=== PATIENT | female | born 1960 | race Caucasian/White ===

== ENCOUNTER → 2016-09-07 | Outpatient (CLI) | payer MEDICAID | LOC: RAD 10:36 | PROVIDERS: ATTEND Internal Medicine Gastroenterology | DX: R10.13 Epigastric pain (principal); R11.0 Nausea | CPT/HCPCS: 76705 ==

== ENCOUNTER 2016-10-07 00:46 | Inpatient (IN) | payer MEDICAID ==
[2016-10-07] MEDS ORDERED: DICYCLOMINE HCL INJ 20 MG/2 ML AMPULE IM ONE (02:46)
[2016-10-07] MEDS ORDERED: NORMAL SALINE 1000 ML 1,000 ML IV ONE (02:47)
[2016-10-07] MEDS ORDERED: ONDANSETRON HCL INJ/PF 4 MG/2 ML SDV IV ONE (02:47)
--- NOTE | 2016-10-07 03:08 | ER Document Report ---
ED General - General TRAVEL OUTSIDE OF THE [place] IN LAST 30 DAYS: No <COURTNEY ALY - Last Filed: 10/07/16 03:06> <PAMELA ALVES - Last Filed: 10/07/16 09:30> - General Chief Complaint: Diarrhea Stated Complaint: ABDOMINAL PAIN Notes: Patient is 55-year-old female presents with complaint of abdominal pain is lower in her abdomen and raised her back. Also some diarrhea. She has a history of renal bowel disease. She's followed by Dr. House. She had a colonoscopy and upper GI endoscopy in April which were normal. She has been on Naprosyn which she just finished. She was on Naprosyn because of tendinitis in her left shoulder. She says that the diarrhea has turned mostly blood type stool. No fevers. No recent antibiotic use. No recent infections. No other complaints at this time. (COURTNEY ALY) - Related Data Allergies/Adverse Reactions: Gadolinium-Containing Contrast Medi Allergy (Verified 11/27/15 13:17) Iodinated Contrast Media - Oral and Allergy (Verified 11/27/15 13:17) iodine Allergy (Verified 11/27/15 13:00) Penicillins Allergy (Verified 11/27/15 13:00) prednisone Allergy (Verified 11/27/15 13:00) strawberry Allergy (Verified 11/27/15 13:17) Past Medical History - Social History Smoking Status: Never Smoker Frequency of alcohol use: None Drug Abuse: None Family History: Reviewed & Not Pertinent Patient has suicidal ideation: No Patient has homicidal ideation: No - Past Medical History Cardiac Medical History: Reports: Hx Hypertension Pulmonary Medical History: Reports: Hx Asthma Renal/ Medical History: Denies: Hx Peritoneal Dialysis Past Surgical History: Reports: Hx Hysterectomy, Hx Orthopedic Surgery - Back - Immunizations Hx Diphtheria, Pertussis, Tetanus Vaccination: Yes - 2001 <COURTNEY ALY - Last Filed: 10/07/16 03:06> Review of Systems <COURTNEY ALY - Last Filed: 10/07/16 03:06> <PAMELA ALVES - Last Filed: 10/07/16 09:30> - Review of Systems Notes: My Normal Review Basic REVIEW OF SYSTEMS: CONSTITUTIONAL : Denies fever, chills, or sweats. Denies recent illness. EENT: Denies eye, ear, throat, or mouth pain or symptoms. Denies nasal or sinus congestion. RESPIRATORY: Denies cough, cold, or chest congestion. Denies shortness of breath, difficulty breathing, or wheezing. GASTROINTESTINAL: Lower abdominal pain. Recurrent diarrhea and bloody stools. GENITOURINARY: Denies difficulty urinating, painful urination, burning, frequency, or blood in urine. FEMALE GENITOURINARY: Denies vaginal bleeding, abnormal or irregular periods. MUSCULOSKELETAL: Some pain radiating to the back from the lower abdomen. SKIN: Denies rash or skin lesions. HEMATOLOGIC : Denies easy bruising or bleeding. NEUROLOGICAL: Denies altered mental status or loss of consciousness. Denies headache. Denies weakness or paralysis or loss of use of either side. Denies problems with gait or speech. Denies sensory or motor loss. ALL OTHER SYSTEMS REVIEWED AND NEGATIVE. (COURTNEY ALY) Physical Exam <COURTNEY ALY - Last Filed: 10/07/16 03:06> <PAMELA ALVES - Last Filed: 10/07/16 09:30> - Vital signs Vitals: Temp Pulse Resp BP Pulse Ox 98.3 F 78 18 137/59 H 98 10/07/16 01:57 10/07/16 01:57 10/07/16 01:57 10/07/16 01:57 10/07/16 01:57 - Notes Notes: General Appearance: Well nourished, alert, cooperative, no acute distress, moderate obvious discomfort. Vitals: reviewed, See vital signs table. Head: no swelling or tenderness to the head Eyes: PERRL, EOMI, Conjuctiva clear Mouth: No decreasd moisture Neck: Supple, no neck tenderness, No thyromegaly Lungs: No wheezing, No rales, No rhonci, No accessory muscle use, good air exchange bilaterally. Heart: Normal rate, Regular rythm, No murmur, no rub Abdomen: Normal BS, soft, No rigidity, mild to moderate left lower quadrant abdominal tenderness to palpation, No guarding, no rebound, no abdominal masses , no organomegaly Extremities: strength 5/5 in all extremities, good pulses in all extremities, no swelling or tenderness in the extremities, no edema. Skin: warm, dry, appropriate color, no rash Neuro: speech clear, oriented x 3, normal affect, responds appropriately to questions. (COURTNEY ALY) Course <COUTRNEY ALY - Last Filed: 10/07/16 03:06> - Laboratory Result Diagrams: 10/07/16 03:40 10/07/16 03:40 <PAMELA ALVES - Last Filed: 10/07/16 09:30> - Re-evaluation Re-evalutation: 10/07/16 09:[address] Mckinnon at 745, phone not connecting Pt admitted to hospitalist Called again no answer (PAMELA ALVES) - Vital Signs Vital signs: Temp Pulse Resp BP Pulse Ox 98.2 F 78 15 141/74 H 96 10/07/16 07:34 10/07/16 01:57 10/07/16 09:01 10/07/16 09:01 10/07/16 09:01 - Laboratory Laboratory results interpreted by me: 10/07/16 10/07/16 03:40 05:51 WBC 17.6 H Seg Neutrophils % 82.9 H Lymphocytes % 12.4 L Absolute Neutrophils 14.6 H Urine Blood SMALL H Discharge <COURTNEY ALY - Last Filed: 10/07/16 03:06> - Discharge Admitting Provider: Hospitalist Unit Admitted: Medical Floor <PAMELA ALVES - Last Filed: 10/07/16 09:30> - Discharge Clinical Impression: Colitis due to Clostridium difficile, Rectal hemorrhage Condition: Stable Disposition: ADMITTED OBSERVATION
[2016-10-07 03:57] LABS: ABSOLUTE BASOPHILS # (AUTO) 0.1 10^3/uL (0.0-0.2); ABSOLUTE LYMPHOCYTES (AUTO) 2.2 10^3/uL (0.5-4.7); ABSOLUTE MONOCYTES (AUTO) 0.8 10^3/uL (0.1-1.4); ABSOLUTE NEUT (AUTO) 14.6 10^3/uL (1.7-8.2); BASOPHILS % (AUTO) 0.3 % (0-2); EOSINOPHILS % (AUTO) 0.1 % (0-6); HEMATOCRIT 41.3 % (36.0-47.0); HEMOGLOBIN 13.9 g/dL (12.0-15.5); HGB HCT DIFFERENCE 0.4; LYMPHOCYTES % (AUTO) 12.4 % (13-45); MEAN CORPUSCULAR HEMOGLOBIN 31.6 pg (27.0-33.4); MEAN CORPUSCULAR HGB CONC 33.7 g/dL (32.0-36.0); MEAN CORPUSCULAR VOLUME 94 fl (80-97); MONOCYTES % (AUTO) 4.3 % (3-13); RED CELL DISTRIBUTION WIDTH 12.9 % (11.5-14.0); SEGMENTED NEUTROPHILS % (AUTO) 82.9 % (42-78); WHITE BLOOD COUNT 17.6 10^3/uL (4.0-10.5)
[2016-10-07 04:05] LABS: ALANINE AMINOTRANSFERASE 26 U/L (9-52); ALKALINE PHOSPHATASE 92 U/L (38-126); ANION GAP 15 (5-19); ASPARTATE AMINO TRANSFERASE 23 U/L (14-36); BILIRUBIN,DIRECT 0.4 mg/dL (0.0-0.4); BILIRUBIN,TOTAL 0.7 mg/dL (0.2-1.3); BLOOD UREA NITROGEN 18 mg/dL (7-20); CALCIUM 10.2 mg/dL (8.4-10.2); CARBON DIOXIDE 23 mmol/L (22-30); CHLORIDE 104 mmol/L (98-107); CREATININE RESULT 0.65 mg/dL (0.52-1.25); GLUCOSE 103 mg/dL (75-110); LIPASE 72.4 U/L (23-300); POTASSIUM 4.6 mmol/L (3.6-5.0); SODIUM 142.3 mmol/L (137-145); TOTAL PROTEIN 8.1 g/dL (6.3-8.2)
[2016-10-07] MEDS ORDERED: METRONIDAZOLE 500 MG/NS RTU 100 ML IV ONE (05:04)
[2016-10-07 07:29] LABS: APPEARANCE,URINE CLEAR; BILIRUBIN,URINE NEGATIVE (NEGATIVE); GLUCOSE, URINE NEGATIVE (NEGATIVE); KETONES,URINE NEGATIVE (NEGATIVE); LEUKOCYTE ESTERASE,URINE NEGATIVE (NEGATIVE); NITRITE,URINE NEGATIVE (NEGATIVE); PROTEIN,URINE NEGATIVE (NEGATIVE); URINE SPECIFIC GRAVITY 1.006; UROBILINOGEN,URINE NEGATIVE mg/dL (<2.0)
[2016-10-07] MEDS ORDERED: ONDANSETRON HCL INJ/PF 4 MG/2 ML SDV IV PRN (10:36)
[2016-10-07] MEDS ORDERED: ACETAMINOPHEN 325 MG TABLET PO PRN (10:36)
[2016-10-07] MEDS ORDERED: IPRATROPIUM/ALBUTEROL 0.5-2.5 MG/3 ML AMPUL NEB PRN (10:36)
[2016-10-07] MEDS ORDERED: MORPHINE SULFATE 10 MG/ML INJ IV PRN (10:43)
[2016-10-07] MEDS ORDERED: LANSOPRAZOLE 30 MG TAB.RAP.DR PO ONE (11:30)
[2016-10-07 12:03] LABS: PHOSPHORUS 4.6 mg/dL (2.5-4.5)
[2016-10-07] MEDS: OXYCODONE-ACETAMINOPHEN 5-325 MG TABLET PO PRN ×2 (14:33→21:13)
[2016-10-07] MEDS: METRONIDAZOLE 500 MG TABLET PO SCH ×2 (14:34→21:13)
[2016-10-07] MEDS ORDERED: (PENDING PHARMACY ID) (Lisinopril [Zestril] 20 MG) PO SCH (14:45)
[2016-10-07] MEDS ORDERED: LISINOPRIL 10 MG TABLET PO ONE (16:00)
[2016-10-07] MEDS: GLYCOPYRROLATE 1 MG TABLET PO SCH (16:15)
[2016-10-07] MEDS: LACTOBACILLUS ACIDOPHILUS 250 MG TAB PO SCH (17:04)
--- NOTE | 2016-10-07 17:38 | PDOC H&P ---
History of Present Illness Admission Date/PCP: 10/07/16 10:36 RYDER STEARNS MD Patient complains of: Abdominal pain and bloody diarrhea History of Present Illness: JHONNY SHAVER is a 55 year old female presents from home with sudden onset of crampy lower abdominal pain "like my belly exploded" with related urgency and tenesmus and "running" stools that quickly changed to bright red bloody stools 4 prior to her presentation. She is having a bowel movement about every 40 minutes. She describes lower abdominal pain as cramping, coming in waves, relieved with bowel movement, exacerbated by palpation in certain position, nonradiating in nature with associated nausea but no vomiting. She has no recent antibiotic exposure, states she was last placed on antibiotics for pharyngitis in July of this year with Z-Pablo 2 courses. She has not been hospitalized or visited people in the hospital. However, her oldest son recently adopted a puppy that had diarrhea for 2 weeks ultimately ended up at the [facility] requiring surgery for partial colectomy. It is not clear if the puppy was colonized with C. difficile or not but this is the only potential exposure she can think of. Evaluation in the emergency department doesn't fact confirm C. difficile colitis with best to admit for further evaluation and treatment. Past Medical History Cardiac Medical History: Reports: Hypertension Pulmonary Medical History: Reports: Asthma GI Medical History: Reports: Other - Diarrhea dominant irritable bowel syndrome Psychiatric Medical History: Reports: Depression Past Surgical History Past Surgical History: Reports: Hysterectomy, Orthopedic Surgery - Back Social History Information Source: Patient Smoking Status: Current Every Day Smoker Cigarettes Packs Per Day: 0.5 Number of Years Smokin Last Time Smoked: 10/06/2016 Frequency of Alcohol Use: Rare Hx Recreational Drug Use: No Hx Prescription Drug Abuse: No - Advance Directive Resuscitation Status: Full Code Family History Family History: Reviewed & Not Pertinent Parental Family History Reviewed: Yes Children Family History Reviewed: Yes Sibling(s) Family History Reviewed.: Yes Medication/Allergy Home Medications: Albuterol Sulfate [Proair HFA] 2 puff IH QIDP PRN 10/07/16 Black Cohosh 1 cap PO DAILY 10/07/16 Cranberry Conc/C/Bacill Coag [Cranberry Tablet] 4,200 mg PO DAILY 10/07/16 Glycopyrrolate [Robinul Forte] 2 mg PO BID 10/07/16 Lactobacillus Combination No.4 [Probiotic] 1 cap PO DAILY 10/07/16 Lisinopril [Zestril] 20 mg PO DAILY 10/07/16 Metaxalone [Skelaxin 800 mg Tablet] 800 mg PO TIDP PRN 10/07/16 Oxycodone HCl/Acetaminophen [Percocet 5-325 mg Tablet] 1 tab PO QIDP PRN Allergies/Adverse Reactions: tramadol Allergy (Intermediate, Verified 10/07/16 11:16) severe N&V and diarrhea Gadolinium-Containing Contrast Medi Allergy (Verified 11/27/15 13:17) Iodinated Contrast Media - Oral and Allergy (Verified 11/27/15 13:17) iodine Allergy (Verified 11/27/15 13:00) Penicillins Allergy (Verified 11/27/15 13:00) prednisone Allergy (Verified 11/27/15 13:00) strawberry Allergy (Verified 11/27/15 13:17) Review of Systems Constitutional: PRESENT: chills, fever(s). ABSENT: headache(s), weight gain, weight loss Eyes: ABSENT: visual disturbances Ears: ABSENT: hearing changes Cardiovascular: ABSENT: chest pain, dyspnea on exertion, edema, orthropnea, palpitations Respiratory: ABSENT: cough, hemoptysis Gastrointestinal: PRESENT: as per HPI, abdominal pain, diarrhea, hematochezia. ABSENT: constipation, hematemesis, nausea, vomiting Genitourinary: ABSENT: dysuria, hematuria Musculoskeletal: ABSENT: joint swelling Integumentary: ABSENT: rash, wounds Neurological: ABSENT: abnormal gait, abnormal speech, confusion, dizziness, focal weakness, syncope Psychiatric: ABSENT: anxiety, depression Endocrine: ABSENT: cold intolerance, heat intolerance, polydipsia, polyuria Hematologic/Lymphatic: ABSENT: easy bleeding, easy bruising Physical Exam Vital Signs: Temp Pulse Resp BP Pulse Ox 98.4 F 75 20 129/53 H 98 10/07/16 13:39 10/07/16 13:39 10/07/16 13:39 10/07/16 13:39 10/07/16 13:39 PHYSICAL EXAM GENERAL: NAD; well developed, well nourished; no obese; alert and oriented to person, place, time, situation HEENT: normocephalic, atraumatic; EOMI, PERRLA, no conjunctival injection, no scleral icterus; oral mucosa moist, neck supple, no LAD, normal ROM RESPIRATORY: no accessory muscle use, no increased WOB, good air entry bilaterally; no wheezes, rales, rhonchi; no inspiratory crackles CARDIO: no JVD; RRR; no systolic murmur; no tachycardia VASCULAR: no carotid bruit; no abdominal bruit; no pallor; 2+ radial, DP pulse ; normal capillary refill GI: soft; nondistended; hyperactive bowel sounds; no hepato spleno megaly; no rebound, rigidity, guarding; left lower quadrant tenderness to palpation NEURO: normal patella reflexes; normal sensation; normal motor function; no gait abnls; no dysarthria; no nystagmus; tongue protrudes midline MSK: 5/5 strength; normal ROM hips; ambulatory without assistance; no tenderness EXTREMITIES: no calf tender; no palpable cords in calf; no clubbing, cyanosis , pedal edema PSYCH: normal affect, normal mood SKIN: warm; moist; no petechiae; no telengectasias; no jaundice; no rash Results Laboratory Results: Labs reviewed, CBC shows a leukocytosis but no anemia, serum chemistries and LFTs are all normal, C-reactive protein elevated at 20, lipase is normal Impressions: Abdomen/Pelvis CT 10/07/16 04:06 IMPRESSION: Tiny nonobstructing left renal calculus. No other renal ureteric calculi are identified. Other findings as noted above Status: Imported from PACS Assessment & Plan - Diagnosis (1) C. difficile colitis Is this a current diagnosis for this admission?: YesPlan: Start metronidazole and admitted for overnight monitoring especially given the rectal bleeding. Monitor leukocytosis. (2) Rectal bleeding Is this a current diagnosis for this admission?: YesPlan: Likely secondary to above, monitor H&H, check coags. (3) Chronic bronchitis Qualifiers: Chronic bronchitis type: simple Qualified Code(s): J41.0 - Simple chronic bronchitis Is this a current diagnosis for this admission?: YesPlan: Stable at this time. Continue home regimen. Start nebs. (4) Hypertension Qualifiers: Hypertension type: essential hypertension Qualified Code(s): I10 - Essential (primary) hypertension Is this a current diagnosis for this admission?: YesPlan: Continue home regimen. Seems stable at this time. Monitor for hypotension due to the underlying infection. - Time Time Spent: Greater than 70 Minutes Medications reviewed and adjusted accordingly: Yes - Inpatient Certification Based on my medical assessment, after consideration of the patient's comorbidities, presenting symptoms, or acuity I expect that the services needed warrant INPATIENT care.: Yes I certify that my determination is in accordance with my understanding of Medicare's requirements for reasonable and necessary INPATIENT services [42 CFR 412.3e].: Yes Medical Necessity: Significant Comorbidiites Make Outpatient Treatment Too Risky , Need For IV Fluids, Risk of Complication if Not Cared For in Hospital
[2016-10-07] MEDS ORDERED: GLYCOPYRROLATE 2 MG PO SCH (18:00)
[2016-10-07 18:01] LABS: PROTHROMBIN TIME 13.6 SEC (11.4-15.4)
[2016-10-07 18:02] LABS: PARTIAL THROMBOPLASTIN TIME 27.6 SEC (23.5-35.8)
[2016-10-07] MEDS: METAXALONE 800 MG TABLET PO PRN (21:14)
[2016-10-07] MEDS: NORMAL SALINE 1000 ML 1,000 ML IV PRN (22:33)
[2016-10-08] MEDS: METRONIDAZOLE 500 MG TABLET PO SCH ×3 (05:58→21:34)
[2016-10-08] MEDS: LANSOPRAZOLE 30 MG TAB.RAP.DR PO SCH (05:59)
[2016-10-08] MEDS: OXYCODONE-ACETAMINOPHEN 5-325 MG TABLET PO PRN ×3 (05:59→21:35)
[2016-10-08] MEDS: NORMAL SALINE 1000 ML 1,000 ML IV PRN ×2 (07:29→09:02)
[2016-10-08] MEDS: GLYCOPYRROLATE 1 MG TABLET PO SCH ×2 (07:29→15:07)
[2016-10-08] MEDS ORDERED: NORMAL SALINE 1000 ML 1,000 ML IV PRN (07:40)
[2016-10-08] MEDS ORDERED: NORMAL SALINE 1000 ML 1,000 ML IV ONE ×2 (07:40→10:00)
[2016-10-08 08:08] LABS: HEMOGLOBIN 12.1 g/dL (12.0-15.5); HGB HCT DIFFERENCE 0.3; MEAN CORPUSCULAR HGB CONC 33.6 g/dL (32.0-36.0); MEAN CORPUSCULAR VOLUME 96 fl (80-97); RED BLOOD COUNT 3.77 10^6/uL (3.72-5.28); RED CELL DISTRIBUTION WIDTH 13.1 % (11.5-14.0); WHITE BLOOD COUNT 14.9 10^3/uL (4.0-10.5)
[2016-10-08 08:44] LABS: ANION GAP 11 (5-19); BLOOD UREA NITROGEN 9 mg/dL (7-20); C-REACTIVE PROTEIN 49.1 mg/L (<10.0); CALCIUM 8.4 mg/dL (8.4-10.2); CARBON DIOXIDE 21 mmol/L (22-30); CHLORIDE 112 mmol/L (98-107); CREATININE RESULT 0.62 mg/dL (0.52-1.25); GLUCOSE 98 mg/dL (75-110); POTASSIUM 4.1 mmol/L (3.6-5.0); SODIUM 144.1 mmol/L (137-145)
[2016-10-08] MEDS: LACTOBACILLUS ACIDOPHILUS 250 MG TAB PO SCH ×2 (09:02→17:02)
[2016-10-08] MEDS: LISINOPRIL 10 MG TABLET PO SCH (09:06)
--- NOTE | 2016-10-08 13:22 | PDOC PROGRESS REPORT ---
Subjective Progress Note for:: 10/08/16 Subjective:: Reason for visit: Follow-up C differential colitis, GI bleed Hospital course: JHONNY SHAVER is a 55 year old female presents from home with sudden onset of crampy lower abdominal pain "like my belly exploded" with related urgency and tenesmus and "running" stools that quickly changed to bright red bloody stools 4 prior to her presentation. She is having a bowel movement about every 40 minutes. She describes lower abdominal pain as cramping, coming in waves, relieved with bowel movement, exacerbated by palpation in certain position, nonradiating in nature with associated nausea but no vomiting. She has no recent antibiotic exposure, states she was last placed on antibiotics for pharyngitis in July of this year with Z-Pablo 2 courses. She has not been hospitalized or visited people in the hospital. However, her oldest son recently adopted a puppy that had diarrhea for 2 weeks ultimately ended up at the [facility] requiring surgery for partial colectomy. It is not clear if the puppy was colonized with C. difficile or not but this is the only potential exposure she can think of. Evaluation in the emergency department does in fact confirm C. difficile colitis and we were asked to admit for further evaluation and treatment. Due to her nausea, She was admitted for IV fluids and see if she would tolerate oral antibiotics. So far her nausea has improved but she continues to report bright red blood per rectum at least once during the night. This morning she is complaining of facial paresthesias involving the left side of her tongue and face similar to "when I had my TIA and mini stroke before". She complains of global, sharp, stabbing, throbbing headache that waxes and wanes, worse with certain positions, better with certain positions and no other associated symptoms. She denies focal weakness, dysarthria, odynophagia, expressive or receptive aphasia symptoms, dysphagia. ROS: per HPI plus a total of 10 systems reviewed, pertinent positives and negatives noted above, remaining systems negative. Physical Exam Vital Signs: Temp Pulse Resp BP Pulse Ox 98.2 F 81 16 117/56 L 97 10/08/16 11:07 10/08/16 12:39 10/08/16 12:39 10/08/16 11:07 10/08/16 12:39 Intake & Output 10/07/16 10/08/16 10/09/16 06:59 06:59 06:59 Intake Total 1999 999 Balance 1999 999 PHYSICAL EXAM GENERAL: NAD; well developed, well nourished; no obese; alert and oriented to person, place, time, situation HEENT: normocephalic, atraumatic; EOMI, PERRLA, no conjunctival injection, no scleral icterus; oral mucosa moist, neck supple, no LAD, normal ROM RESPIRATORY: no accessory muscle use, no increased WOB, good air entry bilaterally; no wheezes, rales, rhonchi; no inspiratory crackles CARDIO: no JVD; RRR; no systolic murmur; no tachycardia VASCULAR: no carotid bruit; no abdominal bruit; no pallor; 2+ radial, DP pulse ; normal capillary refill GI: soft; nondistended; normal bowel sounds; no hepato spleno megaly; no rebound, rigidity, guarding; left lower quadrant tenderness to palpation, improved NEURO: normal patella reflexes; normal sensation; normal motor function; no gait abnl's; no dysarthria; no nystagmus; tongue protrudes midline; no focal findings on confrontational exam MSK: 5/5 strength is symmetric; normal ROM hips; ambulatory without assistance ; no tenderness EXTREMITIES: no calf tender; no palpable cords in calf; no clubbing, cyanosis , pedal edema PSYCH: normal affect, normal mood SKIN: warm; moist; no petechiae; no telengectasias; no jaundice; no rash Results Laboratory Results: 10/08/16 07:29 10/08/16 07:29 10/08/16 10/08/16 10/08/16 07:29 07:29 07:29 WBC 14.9 H RBC 3.77 Hgb 12.1 Hct 36.0 MCV 96 MCH 32.0 MCHC 33.6 RDW 13.1 Plt Count 293 Sodium 144.1 Potassium 4.1 Chloride 112 H Carbon Dioxide 21 L Anion Gap 11 BUN 9 Creatinine 0.62 Est GFR ( Amer) > 60 Est GFR (Non-Af Amer) > 60 Glucose 98 Calcium 8.4 Magnesium 2.0 C-Reactive Protein 49.1 H Vitamin B12 431.0 Impressions: Abdomen/Pelvis CT 10/07/16 04:06 IMPRESSION: Tiny nonobstructing left renal calculus. No other renal ureteric calculi are identified. Other findings as noted above Head MRI 10/08/16 07:41 IMPRESSION: Allowing for motion artifact, normal noncontrast MR brain. No acute intracranial abnormality detected. No recent CVA. Assessment & Plan - Diagnosis (1) C. difficile colitis Is this a current diagnosis for this admission?: YesPlan: Continue metronidazole and IV fluids. Monitor leukocytosis and hemodynamics. (2) Rectal bleeding Is this a current diagnosis for this admission?: YesPlan: Persistent. Likely secondary to above, monitor H&H, coags normal. (3) Chronic bronchitis Qualifiers: Chronic bronchitis type: simple Qualified Code(s): J41.0 - Simple chronic bronchitis Is this a current diagnosis for this admission?: Yes (4) Hypertension Qualifiers: Hypertension type: essential hypertension Qualified Code(s): I10 - Essential (primary) hypertension Is this a current diagnosis for this admission?: Yes (5) Paresthesias Is this a current diagnosis for this admission?: YesPlan: The patient suffered transient hypotension during the night and I suspect this is the source of her paresthesias. Stat MRI shows no acute intracranial abnormality or infarct. Check stat B12. Increase IV fluids to keep a higher mean arterial pressure. Monitor for response. - Time Time Spent with patient: 35 or more minutes Medications reviewed and adjusted accordingly: Yes
[2016-10-08] MEDS ORDERED: RINGERS SOLUTION,LACTATED 1,000 ML IV PRN (16:26)
[2016-10-08] MEDS: METAXALONE 800 MG TABLET PO PRN (22:34)
[2016-10-08] MEDS ORDERED: 1/2 NORMAL SALINE 1,000 ML IV PRN (22:46)
[2016-10-09] MEDS: LANSOPRAZOLE 30 MG TAB.RAP.DR PO SCH (05:20)
[2016-10-09] MEDS: METRONIDAZOLE 500 MG TABLET PO SCH ×3 (05:20→21:07)
--- NOTE | 2016-10-09 07:28 | Physician Advisory Note ---
Physician Advisor ProgressNote .: [facility] have reviewed [facility] medical record for this patient. Physician Advisor Statement: Nice documentation of concerns 10/08 due to transient hypotension w/ paresthesias. Possible documentation opportunities if attending agrees: 1. "acute metabolic acidosis due to diarrhea" As always, if concerned about any unstable VS or abnormal labs, please comment on them & note what doing about them, & please document each day the potential clinical problems you are concerned could occur if pt not kept in hospital for tx at this time. Discussion: 55yo female w/ chronic co-morbidities including HTN, asthma, tobacco abuse, IBS- D - presented 4/8 AM to ED w/abd pain, bloody diarrhea (+) T98.3, HR78, RR18, BP 137/59, WBC 17.6, Hgb 13.9, bicarb 23, Phos 4.6, CRP 20, hem+, C.diff+ Attending ordered NS wide open then 1/2NS @75ml/hr, po Flagyl, q4h VS, f/u labs Status: Pt appropriate initially for Outpt Obs. After 1 night of care, pt having new sx of paresthesias felt due to episode hypotension overnight, likely related to continued intravascular volume depletion from the diarrhea & rectal bleeding, requiring add'tional boluses of IVF, further monitoring of BP & sx. She had continued leukocytosis @14.9, her bicarb was worse @21, indicating worse acute metabolic acidosis from the diarrhea, her CRP was worse - from 20 to 49. Her BP continued to drop to 90s systolic during the day 10/08: 99/51, 87/50, 99/46, 92/53. Attending ordered 2L of NS boluses IV, & f/u labs. Continued tx & monitoring in inpatient hospital setting medically reasonable & necessary to protect pt's health, safety, & medical condition. Appropriate to change to Inpt status as of 10/08 PM. Thanks for your help with documentation accuracy/specificity improvement! Denise Garcia MD [facility] Physician Advisor, Fellow of Hospital Medicine
[2016-10-09] MEDS: GLYCOPYRROLATE 1 MG TABLET PO SCH ×2 (07:38→15:47)
[2016-10-09] MEDS: OXYCODONE-ACETAMINOPHEN 5-325 MG TABLET PO PRN ×2 (07:38→23:29)
[2016-10-09] MEDS: LACTOBACILLUS ACIDOPHILUS 250 MG TAB PO SCH ×2 (09:47→18:21)
[2016-10-09 11:10] LABS: ANION GAP 10 (5-19); BLOOD UREA NITROGEN 10 mg/dL (7-20); C-REACTIVE PROTEIN 41.4 mg/L (<10.0); CALCIUM 8.6 mg/dL (8.4-10.2); CARBON DIOXIDE 25 mmol/L (22-30); CHLORIDE 108 mmol/L (98-107); CREATININE RESULT 0.61 mg/dL (0.52-1.25); GLUCOSE 155 mg/dL (75-110); MAGNESIUM 1.9 mg/dL (1.6-2.3); SODIUM 143.1 mmol/L (137-145)
[2016-10-09] MEDS: LISINOPRIL 10 MG TABLET PO SCH (11:54)
--- NOTE | 2016-10-09 13:45 | PDOC PROGRESS REPORT ---
Subjective Progress Note for:: 10/09/16 Subjective:: Reason for visit: Follow-up C differential colitis, GI bleed Hospital course: JHONNY SHAVER is a 55 year old female presents from home with sudden onset of crampy lower abdominal pain "like my belly exploded" with related urgency and tenesmus and "running" stools that quickly changed to bright red bloody stools 4 prior to her presentation. She is having a bowel movement about every 40 minutes. She describes lower abdominal pain as cramping, coming in waves, relieved with bowel movement, exacerbated by palpation in certain position, nonradiating in nature with associated nausea but no vomiting. She has no recent antibiotic exposure, states she was last placed on antibiotics for pharyngitis in July of this year with Z-Pablo 2 courses. She has not been hospitalized or visited people in the hospital. However, her oldest son recently adopted a puppy that had diarrhea for 2 weeks ultimately ended up at the [facility] requiring surgery for partial colectomy. It is not clear if the puppy was colonized with C. difficile or not but this is the only potential exposure she can think of. Evaluation in the emergency department does in fact confirm C. difficile colitis and we were asked to admit for further evaluation and treatment. Due to her nausea, She was admitted for IV fluids and see if she would tolerate oral antibiotics. So far her nausea has improved but she continues to report bright red blood per rectum at least once during the night. This morning she is complaining of facial paresthesias involving the left side of her tongue and face similar to "when I had my TIA and mini stroke before". She complains of global, sharp, stabbing, throbbing headache that waxes and wanes, worse with certain positions, better with certain positions and no other associated symptoms. She denies focal weakness, dysarthria, odynophagia, expressive or receptive aphasia symptoms, dysphagia. stat MRI was negative for acute disease. Her BP responded to IVFs and so did her symptoms, it seems she is very sensitive to changes in SBPs. ROS: Today she continues to complain of left lower quadrant abdominal pain, slightly worse than before described as a sharp, stabbing pain alleviated with bowel movement and worsened with bowel distention and certain positions with associated nausea but no emesis when the pain is at its worst. Per HPI plus a total of 10 systems reviewed, pertinent positives and negatives noted above, remaining systems negative. Physical Exam Vital Signs: Temp Pulse Resp BP Pulse Ox 98.2 F 70 16 123/59 L 99 10/09/16 11:45 10/09/16 11:45 10/09/16 11:45 10/09/16 11:45 10/09/16 11:45 Intake & Output 10/08/16 10/09/16 10/10/16 06:59 06:59 06:59 Intake Total 4140 Balance 4140 PHYSICAL EXAM GENERAL: NAD; well developed, well nourished; no obese; alert and oriented to person, place, time, situation HEENT: normocephalic, atraumatic; no conjunctival injection, no scleral icterus ; oral mucosa moist, RESPIRATORY: no accessory muscle use, no increased WOB, good air entry bilaterally; no wheezes, rales, rhonchi; no inspiratory crackles CARDIO: no JVD; RRR; no systolic murmur; no tachycardia VASCULAR: no carotid bruit; no abdominal bruit; no pallor; 2+ radial, DP pulse ; normal capillary refill GI: soft; nondistended; normal bowel sounds; no rebound, rigidity, guarding; left lower quadrant tenderness to palpation with voluntary guarding NEURO: normal patella reflexes; normal sensation; normal motor function; no gait abnl's; no dysarthria; no nystagmus; tongue protrudes midline; no focal findings on confrontational exam MSK: 5/5 strength is symmetric; normal ROM hips; ambulatory without assistance ; no tenderness EXTREMITIES: no calf tender; no palpable cords in calf; no clubbing, cyanosis , pedal edema PSYCH: normal affect, normal mood SKIN: warm; moist; no petechiae; no telengectasias; no jaundice; no rash Results Laboratory Results: 10/09/16 10:05 10/09/16 10:05 Sodium 143.1 Potassium 4.0 Chloride 108 H Carbon Dioxide 25 Anion Gap 10 BUN 10 Creatinine 0.61 Est GFR ( Amer) > 60 Est GFR (Non-Af Amer) > 60 Glucose 155 H Calcium 8.6 Magnesium 1.9 C-Reactive Protein 41.4 H Impressions: Head MRI 10/08/16 07:41 IMPRESSION: Allowing for motion artifact, normal noncontrast MR brain. No acute intracranial abnormality detected. No recent CVA. Assessment & Plan - Diagnosis (1) C. difficile colitis Is this a current diagnosis for this admission?: YesPlan: worsening LLQ pain from the colitis. Continue metronidazole, supportive care and IV fluids. (2) Rectal bleeding Is this a current diagnosis for this admission?: YesPlan: Slightly worse with dropping H/H, could be part dilutional as well. bleeding persists but is "easing off" according to patient. Likely secondary to above, monitor H&H, coags normal. (3) Paresthesias Is this a current diagnosis for this admission?: YesPlan: The patient suffered transient hypotension during the night and I suspect this is the source of her paresthesias. Stat MRI shows no acute intracranial abnormality or infarct. B12 normal. continue IV fluids to keep a higher mean arterial pressure. Monitor for recurrence. (4) Chronic bronchitis Qualifiers: Chronic bronchitis type: simple Qualified Code(s): J41.0 - Simple chronic bronchitis Is this a current diagnosis for this admission?: Yes (5) Hypertension Qualifiers: Hypertension type: essential hypertension Qualified Code(s): I10 - Essential (primary) hypertension Is this a current diagnosis for this admission?: Yes - Time Time Spent with patient: 25-34 minutes Medications reviewed and adjusted accordingly: Yes Anticipated discharge: Home Within: within 24 hours - Plan Summary Plan Summary: Hopefully home tomorrow
[2016-10-09] MEDS: METAXALONE 800 MG TABLET PO PRN (23:53)
[2016-10-10] MEDS: METRONIDAZOLE 500 MG TABLET PO SCH (05:19)
[2016-10-10] MEDS: LANSOPRAZOLE 30 MG TAB.RAP.DR PO SCH (05:19)
[2016-10-10 06:50] LABS: ABSOLUTE BASOPHILS # (AUTO) 0.1 10^3/uL (0.0-0.2); ABSOLUTE EOSINOPHILS # (AUTO) 0.1 10^3/uL (0.0-0.6); ABSOLUTE LYMPHOCYTES (AUTO) 2.6 10^3/uL (0.5-4.7); ABSOLUTE MONOCYTES (AUTO) 0.9 10^3/uL (0.1-1.4); ABSOLUTE NEUT (AUTO) 8.1 10^3/uL (1.7-8.2); BASOPHILS % (AUTO) 0.6 % (0-2); EOSINOPHILS % (AUTO) 0.9 % (0-6); HEMATOCRIT 31.6 % (36.0-47.0); HGB HCT DIFFERENCE 1.4; LYMPHOCYTES % (AUTO) 22.1 % (13-45); MEAN CORPUSCULAR HEMOGLOBIN 32.4 pg (27.0-33.4); MEAN CORPUSCULAR HGB CONC 34.7 g/dL (32.0-36.0); MEAN CORPUSCULAR VOLUME 93 fl (80-97); MONOCYTES % (AUTO) 7.9 % (3-13); RED BLOOD COUNT 3.39 10^6/uL (3.72-5.28); RED CELL DISTRIBUTION WIDTH 12.5 % (11.5-14.0); SEGMENTED NEUTROPHILS % (AUTO) 68.5 % (42-78); WHITE BLOOD COUNT 11.9 10^3/uL (4.0-10.5)
[2016-10-10 07:08] LABS: C-REACTIVE PROTEIN 36.9 mg/L (<10.0); MAGNESIUM 1.8 mg/dL (1.6-2.3)
[2016-10-10] MEDS: GLYCOPYRROLATE 1 MG TABLET PO SCH (08:47)
[2016-10-10 09:25] VITALS: BP 127/55
[2016-10-10] MEDS: OXYCODONE-ACETAMINOPHEN 5-325 MG TABLET PO PRN (09:34)
[2016-10-10] MEDS: LACTOBACILLUS ACIDOPHILUS 250 MG TAB PO SCH (09:34)
[2016-10-10] MEDS: METAXALONE 800 MG TABLET PO PRN (10:52)
[2016-10-10] MEDS: LISINOPRIL 10 MG TABLET PO SCH (12:04)
--- NOTE | 2016-10-11 18:47 | PDOC DISCHARGE SUMMARY ---
General - Admit/Disc Date/PCP Admission Date/Primary Care Provider: 10/08/16 14:00 RYDER STEARNS MD Discharge Date: 10/11/16 - Discharge Diagnosis (1) C. difficile colitis Is this a current diagnosis for this admission?: Yes (2) Chronic bronchitis Is this a current diagnosis for this admission?: Yes (3) Hypertension Is this a current diagnosis for this admission?: Yes - Additional Information Resuscitation Status: Full Code Discharge Activity: Activity As Tolerated Home Medications: Albuterol Sulfate [Proair HFA] 2 puff IH QIDP PRN 10/07/16 Lactobacillus Combination No.4 [Probiotic] 1 cap PO DAILY 10/07/16 Metaxalone [Skelaxin 800 mg Tablet] 800 mg PO TIDP PRN 10/07/16 Oxycodone HCl/Acetaminophen [Percocet 5-325 mg Tablet] 1 tab PO QIDP PRN Metronidazole [Flagyl 500 mg Tablet] 500 mg PO Q8 #45 tablet 10/10/16 History of Present Illness Patient complains of: abdominal pain History of Present Illness: JHONNY SHAVER is a 55 year old female 55 year old female presents from home with sudden onset of crampy lower abdominal pain "like my belly exploded" with related urgency and tenesmus and "running" stools that quickly changed to bright red bloody stools 4 prior to her presentation. She is having a bowel movement about every 40 minutes. She describes lower abdominal pain as cramping, coming in waves, relieved with bowel movement, exacerbated by palpation in certain position, nonradiating in nature with associated nausea but no vomiting. She has no recent antibiotic exposure, states she was last placed on antibiotics for pharyngitis in July of this year with Z-Pablo 2 courses. She has not been hospitalized or visited people in the hospital. However, her oldest son recently adopted a puppy that had diarrhea for 2 weeks ultimately ended up at the [facility] requiring surgery for partial colectomy. It is not clear if the puppy was colonized with C. difficile or not but this is the only potential exposure she can think of. Evaluation in the emergency department does in fact confirm C. difficile colitis and we were asked to admit for further evaluation and treatment. Due to her nausea, She was admitted for IV fluids and see if she would tolerate oral antibiotics. So far her nausea has improved but she continues to report bright red blood per rectum at least once during the night. This morning she is complaining of facial paresthesias involving the left side of her tongue and face similar to "when I had my TIA and mini stroke before". She complains of global, sharp, stabbing, throbbing headache that waxes and wanes, worse with certain positions, better with certain positions and no other associated symptoms. She denies focal weakness, dysarthria, odynophagia, expressive or receptive aphasia symptoms, dysphagia. stat MRI was negative for acute disease. Her BP responded to IVFs and so did her symptoms, it seems she is very sensitive to changes in SBPs. Hospital Course Hospital Course: Patient had an episode of hypotension and paresthesias that resolved C diff was treated with flagyl with decrease of abdominal pain and fever Her course otherwise was uncomplicated Physical Exam Vital Signs: Temp Pulse Resp BP Pulse Ox 98.1 F 78 18 127/55 H 98 10/10/16 11:11 10/10/16 11:11 10/10/16 11:11 10/10/16 11:11 10/10/16 11:11 Intake & Output 10/10/16 10/11/16 10/12/16 00:59 00:59 00:59 Intake Total 2100 980 Balance 2100 980 General appearance: PRESENT: no acute distress, well-developed, well-nourished Head exam: PRESENT: atraumatic, normocephalic Eye exam: PRESENT: conjunctiva pink, EOMI, PERRLA. ABSENT: scleral icterus Ear exam: PRESENT: normal external ear exam Mouth exam: PRESENT: moist, tongue midline Neck exam: ABSENT: carotid bruit, JVD, lymphadenopathy, thyromegaly Respiratory exam: PRESENT: clear to auscultation dominik. ABSENT: rales, rhonchi, wheezes Cardiovascular exam: PRESENT: RRR. ABSENT: diastolic murmur, rubs, systolic murmur Pulses: PRESENT: normal dorsalis pedis pul Vascular exam: PRESENT: normal capillary refill GI/Abdominal exam: PRESENT: normal bowel sounds, soft. ABSENT: distended, guarding, mass, organolmegaly, rebound, tenderness Rectal exam: PRESENT: deferred Extremities exam: PRESENT: full ROM. ABSENT: calf tenderness, clubbing, pedal edema Neurological exam: PRESENT: alert, awake, oriented to person, oriented to place , oriented to time, oriented to situation, CN II-XII grossly intact. ABSENT: motor sensory deficit Psychiatric exam: PRESENT: appropriate affect, normal mood. ABSENT: homicidal ideation, suicidal ideation Skin exam: PRESENT: dry, intact, warm. ABSENT: cyanosis, rash Results Laboratory Results: 10/10/16 06:26 10/09/16 10:05 Labs- Entire Visit 10/07/16 10/07/16 10/07/16 03:36 03:36 03:40 WBC 17.6 H RBC 4.40 Hgb 13.9 Hct 41.3 MCV 94 MCH 31.6 MCHC 33.7 RDW 12.9 Plt Count 359 Seg Neutrophils % 82.9 H Lymphocytes % 12.4 L Monocytes % 4.3 Eosinophils % 0.1 Basophils % 0.3 Absolute Neutrophils 14.6 H Absolute Lymphocytes 2.2 Absolute Monocytes 0.8 Absolute Eosinophils 0.0 Absolute Basophils 0.1 PT INR APTT Sodium Potassium Chloride Carbon Dioxide Anion Gap BUN Creatinine Est GFR ( Amer) Est GFR (Non-Af Amer) Glucose Calcium Phosphorus Magnesium Total Bilirubin Direct Bilirubin Indirect Bilirubin Neonat Total Bilirubin AST ALT Alkaline Phosphatase C-Reactive Protein Total Protein Albumin Lipase Vitamin B12 Urine Color Urine Appearance Urine pH Ur Specific [place] Urine Protein Urine Glucose (UA) Urine Ketones Urine Blood Urine Nitrite Urine Bilirubin Urine Urobilinogen Ur Leukocyte Esterase Urine WBC (Auto) Squamous Epi Cells Auto Urine Ascorbic Acid Stool Occult Blood POSITIVE C. difficile Tox (PCR) POSITIVE 10/07/16 10/07/16 10/07/16 03:40 03:40 05:51 WBC RBC Hgb Hct MCV MCH MCHC RDW Plt Count Seg Neutrophils % Lymphocytes % Monocytes % Eosinophils % Basophils % Absolute Neutrophils Absolute Lymphocytes Absolute Monocytes Absolute Eosinophils Absolute Basophils PT INR APTT Sodium 142.3 Potassium 4.6 Chloride 104 Carbon Dioxide 23 Anion Gap 15 BUN 18 Creatinine 0.65 Est GFR ( Amer) > 60 Est GFR (Non-Af Amer) > 60 Glucose 103 Calcium 10.2 Phosphorus 4.6 H Magnesium 2.0 Total Bilirubin 0.7 Direct Bilirubin 0.4 Indirect Bilirubin Not Reportable Neonat Total Bilirubin Not Reportable AST 23 ALT 26 Alkaline Phosphatase 92 C-Reactive Protein 20.0 H Total Protein 8.1 Albumin 5.0 Lipase 72.4 Vitamin B12 Urine Color STRAW Urine Appearance CLEAR Urine pH 5.0 Ur Specific [place] 1.006 Urine Protein NEGATIVE Urine Glucose (UA) NEGATIVE Urine Ketones NEGATIVE Urine Blood SMALL H Urine Nitrite NEGATIVE Urine Bilirubin NEGATIVE Urine Urobilinogen NEGATIVE Ur Leukocyte Esterase NEGATIVE Urine WBC (Auto) 0 Squamous Epi Cells Auto 1 Urine Ascorbic Acid NEGATIVE Stool Occult Blood C. difficile Tox (PCR) 10/07/16 10/08/16 10/08/16 17:27 07:29 07:29 WBC 14.9 H RBC 3.77 Hgb 12.1 Hct 36.0 MCV 96 MCH 32.0 MCHC 33.6 RDW 13.1 Plt Count 293 Seg Neutrophils % Lymphocytes % Monocytes % Eosinophils % Basophils % Absolute Neutrophils Absolute Lymphocytes Absolute Monocytes Absolute Eosinophils Absolute Basophils PT 13.6 INR 1.01 APTT 27.6 Sodium 144.1 Potassium 4.1 Chloride 112 H Carbon Dioxide 21 L Anion Gap 11 BUN 9 Creatinine 0.62 Est GFR ( Amer) > 60 Est GFR (Non-Af Amer) > 60 Glucose 98 Calcium 8.4 Phosphorus Magnesium 2.0 Total Bilirubin Direct Bilirubin Indirect Bilirubin Neonat Total Bilirubin AST ALT Alkaline Phosphatase C-Reactive Protein 49.1 H Total Protein Albumin Lipase Vitamin B12 Urine Color Urine Appearance Urine pH Ur Specific [place] Urine Protein Urine Glucose (UA) Urine Ketones Urine Blood Urine Nitrite Urine Bilirubin Urine Urobilinogen Ur Leukocyte Esterase Urine WBC (Auto) Squamous Epi Cells Auto Urine Ascorbic Acid Stool Occult Blood C. difficile Tox (PCR) 10/08/16 10/09/16 10/10/16 07:29 10:05 06:26 WBC 11.9 H RBC 3.39 L Hgb 11.0 L Hct 31.6 L MCV 93 MCH 32.4 MCHC 34.7 RDW 12.5 Plt Count 245 Seg Neutrophils % 68.5 Lymphocytes % 22.1 Monocytes % 7.9 Eosinophils % 0.9 Basophils % 0.6 Absolute Neutrophils 8.1 Absolute Lymphocytes 2.6 Absolute Monocytes 0.9 Absolute Eosinophils 0.1 Absolute Basophils 0.1 PT INR APTT Sodium 143.1 Potassium 4.0 Chloride 108 H Carbon Dioxide 25 Anion Gap 10 BUN 10 Creatinine 0.61 Est GFR ( Amer) > 60 Est GFR (Non-Af Amer) > 60 Glucose 155 H Calcium 8.6 Phosphorus Magnesium 1.9 Total Bilirubin Direct Bilirubin Indirect Bilirubin Neonat Total Bilirubin AST ALT Alkaline Phosphatase C-Reactive Protein 41.4 H Total Protein Albumin Lipase Vitamin B12 431.0 Urine Color Urine Appearance Urine pH Ur Specific [place] Urine Protein Urine Glucose (UA) Urine Ketones Urine Blood Urine Nitrite Urine Bilirubin Urine Urobilinogen Ur Leukocyte Esterase Urine WBC (Auto) Squamous Epi Cells Auto Urine Ascorbic Acid Stool Occult Blood C. difficile Tox (PCR) 10/10/16 06:26 WBC RBC Hgb Hct MCV MCH MCHC RDW Plt Count Seg Neutrophils % Lymphocytes % Monocytes % Eosinophils % Basophils % Absolute Neutrophils Absolute Lymphocytes Absolute Monocytes Absolute Eosinophils Absolute Basophils PT INR APTT Sodium Potassium Chloride Carbon Dioxide Anion Gap BUN Creatinine Est GFR ( Amer) Est GFR (Non-Af Amer) Glucose Calcium Phosphorus Magnesium 1.8 Total Bilirubin Direct Bilirubin Indirect Bilirubin Neonat Total Bilirubin AST ALT Alkaline Phosphatase C-Reactive Protein 36.9 H Total Protein Albumin Lipase Vitamin B12 Urine Color Urine Appearance Urine pH Ur Specific [place] Urine Protein Urine Glucose (UA) Urine Ketones Urine Blood Urine Nitrite Urine Bilirubin Urine Urobilinogen Ur Leukocyte Esterase Urine WBC (Auto) Squamous Epi Cells Auto Urine Ascorbic Acid Stool Occult Blood C. difficile Tox (PCR) 10/07/16 03:36 - Final Stool - Stool Stool Culture - Final NO SALMONELLA, SHIGELLA, CAMPYLOBACTER, OR E.COLI 0157 RECOVERED. NEGATIVE FOR SHIGA TOXINS 1&2. Impressions: Abdomen/Pelvis CT 10/07/16 04:06 IMPRESSION: Tiny nonobstructing left renal calculus. No other renal ureteric calculi are identified. Other findings as noted above Head MRI 10/08/16 07:41 IMPRESSION: Allowing for motion artifact, normal noncontrast MR brain. No acute intracranial abnormality detected. No recent CVA. Plan Discharge Plan: discharged home to follow up with family doctor in 1 week Time Spent: Greater than 30 Minutes
== END 2016-10-10 13:18 | disposition home or self-care (01) | DRG 372 ==
LOC: ER 00:46 → UNDOADMOB 09:41 → EH 09:41 → 2S 13:29 → OBSVTOIN 10-08 14:00
PROVIDERS: ADMIT Family Medicine; ATTEND Family Medicine
PROC: 3E0F73Z Introduction of Anti-inflammatory into Respiratory Tract, Via Natural or Artificial Opening (ICD-10-PCS; principal; 2016-10-07)
DX: A04.7 Enterocolitis due to Clostridium difficile (principal); E87.2 Acidosis; J41.0 Simple chronic bronchitis; I10 Essential (primary) hypertension; N20.0 Calculus of kidney; J45.909 Unspecified asthma, uncomplicated; F32.9 Major depressive disorder, single episode, unspecified; K58.0 Irritable bowel syndrome with diarrhea; F17.210 Nicotine dependence, cigarettes, uncomplicated; I95.9 Hypotension, unspecified; R20.8 Other disturbances of skin sensation; Z79.899 Other long term (current) drug therapy; Z90.710 Acquired absence of both cervix and uterus; Z88.6 Allergy status to analgesic agent; Z91.041 Radiographic dye allergy status; Z88.8 Allergy status to other drugs, medicaments and biological substances; Z88.0 Allergy status to penicillin; Z91.018 Allergy to other foods
CPT/HCPCS: 36415; 70551; 74176; 80048; 80053; 81001; 82272; 82607; 83690; 83735; 84100; 85025; 85027; 85610; 85730; 86140; 87045; 87205; 87493; 96365; 96372; 96375; 99285; G0378; J0500; J2405; J3490; J7030; J7120

== ENCOUNTER → 2016-11-10 | Outpatient (CLI) | payer MEDICAID | LOC: RAD 07:30 | PROVIDERS: ATTEND Internal Medicine Gastroenterology | DX: R10.13 Epigastric pain (principal); R68.81 Early satiety | CPT/HCPCS: 78264; A9541 ==

== ENCOUNTER 2017-01-16 14:18 | Emergency (ER) | payer MEDICAID ==
[2017-01-16 14:28] VITALS: BP 153/87
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
--- NOTE | 2017-01-16 16:20 | RADIOLOGY REPORT (SQ) ---
EXAM DESCRIPTION: FINGER LEFT COMPLETED DATE/TIME: 01/16/2017 4:05 pm REASON FOR STUDY: Left finger dog bite, distal COMPARISON: None. NUMBER OF VIEWS: Three views. TECHNIQUE: AP, lateral, and oblique images acquired of the left second finger. LIMITATIONS: None. FINDINGS: MINERALIZATION: Normal. BONES: No acute fracture or dislocation. No worrisome bone lesions. SOFT TISSUES: No soft tissue swelling. No foreign body. OTHER: No other significant finding. IMPRESSION: No evidence of fracture or foreign body. COMMENT: SITE OF TRAUMA/COMPLAINT MARKED/STAMP COMPLETED: Yes TECHNICAL DOCUMENTATION: JOB ID: [id number] [employer]- All Rights Reserved
== END 2017-01-16 16:50 | disposition home or self-care (01) ==
LOC: ER 14:18
DX: S61.552A Open bite of left wrist, initial encounter (principal); S61.251A Open bite of left index finger without damage to nail, initial encounter; S50.872A Other superficial bite of left forearm, initial encounter; W54.0XXA Bitten by dog, initial encounter; Y93.K9 Activity, other involving animal care; Y92.009 Unspecified place in unspecified non-institutional (private) residence as the place of occurrence of the external cause; I10 Essential (primary) hypertension; J45.909 Unspecified asthma, uncomplicated; F17.200 Nicotine dependence, unspecified, uncomplicated; Z88.0 Allergy status to penicillin
CPT/HCPCS: 99283

== ENCOUNTER 2017-08-03 12:19 | Emergency (ER) | payer MEDICAID ==
[2017-08-03] MEDS ORDERED: PREDNISONE 20 MG TABLET PO ONE (13:13)
[2017-08-03] MEDS ORDERED: IBUPROFEN 600 MG TABLET PO ONE (13:13)
[2017-08-03] MEDS ORDERED: IPRATROPIUM/ALBUTEROL 0.5-2.5 MG/3 ML AMPUL NEB ONE (13:13)
--- NOTE | 2017-08-03 13:58 | RADIOLOGY REPORT (SQ) ---
EXAM DESCRIPTION: CHEST PA/LAT COMPLETED DATE/TIME: 08/03/2017 1:45 pm REASON FOR STUDY: cough COMPARISON: None. EXAM PARAMETERS: NUMBER OF VIEWS: two views TECHNIQUE: Digital Frontal and Lateral radiographic views of the chest acquired. RADIATION DOSE: NA LIMITATIONS: none FINDINGS: LUNGS AND PLEURA: No opacities, masses or pneumothorax. No pleural effusion. MEDIASTINUM AND HILAR STRUCTURES: No masses or contour abnormalities. HEART AND VASCULAR STRUCTURES: Heart normal size. No evidence for failure. BONES: No acute findings. HARDWARE: None in the chest. OTHER: No other significant finding. IMPRESSION: NO SIGNIFICANT RADIOGRAPHIC FINDING IN THE CHEST. TECHNICAL DOCUMENTATION: JOB ID: [id number] [employer]- All Rights Reserved
--- NOTE | 2017-08-03 13:59 | RADIOLOGY REPORT (SQ) ---
EXAM DESCRIPTION: FINGER RIGHT COMPLETED DATE/TIME: 08/03/2017 1:45 pm REASON FOR STUDY: r 3 finger injury COMPARISON: None. NUMBER OF VIEWS: Three views. TECHNIQUE: AP, lateral, and oblique images acquired of the right third finger. LIMITATIONS: None. FINDINGS: MINERALIZATION: Normal. BONES: No acute fracture or dislocation. No worrisome bone lesions. SOFT TISSUES: No soft tissue swelling. No foreign body. OTHER: No other significant finding. IMPRESSION: NO RADIOGRAPHIC EVIDENCE OF ACUTE INJURY. COMMENT: SITE OF TRAUMA/COMPLAINT MARKED/STAMP COMPLETED: YES. TECHNICAL DOCUMENTATION: JOB ID: [id number] [employer]- All Rights Reserved
--- NOTE | 2017-08-03 14:14 | ER Document Report ---
HPI - HPI Patient complains to provider of: Finger injury Onset: Yesterday Onset/Duration: Sudden Quality of pain: Achy Pain Level: 4 Context: Patient states that she had her hand on her dog's collar and he twisted causing her to injure her right hand finger. Patient additionally complains of nausea with cough. Patient states she has had some wheezing since yesterday as well. Patient denies any vomiting, diarrhea or shortness of breath. Associated Symptoms: Nonproductive cough, Nausea, Other - Right third finger injury. denies: Fever, Vomiting Exacerbated by: Movement Relieved by: Denies Similar symptoms previously: Yes Recently seen / treated by doctor: No - ROS ROS below otherwise negative: Yes Systems Reviewed and Negative: Yes All other systems reviewed and negative - CONSTITUTIONAL Constitutional: DENIES: Fever - NEURO Neurology: DENIES: Headache, Weakness - CARDIOVASCULAR Cardiovascular: DENIES: Chest pain - RESPIRATORY Respiratory: REPORTS: Coughing - GASTROINTESTINAL Gastrointestinal: REPORTS: Nausea. DENIES: Abdominal Pain, Patient vomiting, Diarrhea - MUSCULOSKELETAL Musculoskeletal: REPORTS: Extremity pain, Swelling - DERM Skin Color: Ecchymosis Skin Problems: None Past Medical History - General Information source: Patient - Social History Smoking Status: Current Every Day Smoker Chew tobacco use (# tins/day): No Frequency of alcohol use: None Drug Abuse: None Occupation: None Lives with: Family Family History: Reviewed & Not Pertinent Patient has suicidal ideation: No Patient has homicidal ideation: No - Past Medical History Cardiac Medical History: Reports: Hx Hypertension Pulmonary Medical History: Reports: Hx Asthma Renal/ Medical History: Denies: Hx Peritoneal Dialysis GI Medical History: Reports: Hx Irritable Bowel, Hx Ulcerative Colitis Psychiatric Medical History: Reports: Hx Depression Past Surgical History: Reports: Hx Hysterectomy, Hx Orthopedic Surgery - Back - Immunizations Hx Diphtheria, Pertussis, Tetanus Vaccination: Yes - 2001 Hx Pneumococcal Vaccination: 07/02/13 Vertical Provider Document - CONSTITUTIONAL Agree With Documented VS: Yes Exam Limitations: No Limitations General Appearance: WD/WN, No Apparent Distress - INFECTION CONTROL TRAVEL OUTSIDE OF THE [place] IN LAST 30 DAYS: No - HEENT HEENT: Atraumatic, Normocephalic - NECK Neck: Normal Inspection, Supple - RESPIRATORY Respiratory: No Respiratory Distress, Chest Non-Tender, Wheezing O2 Sat by Pulse Oximetry: 99 - CARDIOVASCULAR Cardiovascular: Regular Rate, Regular Rhythm, No Murmur - GI/ABDOMEN Gastrointestinal: Abdomen Soft, Abdomen Non-Tender, No Organomegaly - MUSCULOSKELETAL/EXTREMETIES Musculoskeletal/Extremeties: MAEW, Tender - Right third finger tenderness and swelling about the DIP joint, no tendon deficit, Edema, Eccymosis - NEURO Level of Consciousness: Awake, Alert, Appropriate Motor/Sensory: No Motor Deficit - DERM Integumentary: Warm, Dry, No Rash Course - Re-evaluation Re-evalutation: 08/03/17 14:16 Wheezing resolved after nebulizer treatment. Respirations even and unlabored. No concern for pneumonia or finger fracture at this time. Discussed worsening symptoms that patient should return immediately for. Patient states she does have her asthma medications at home. - Vital Signs Vital signs: Temp Pulse Resp BP Pulse Ox 97.9 F 86 20 104/55 L 99 08/03/17 12:30 08/03/17 12:30 08/03/17 12:30 08/03/17 12:30 08/03/17 12:30 - Diagnostic Test Radiology reviewed: Image reviewed, Reports reviewed Procedures - Immobilization Right Finger 3rd digit Pre-Proc Neuro Vasc Exam: Normal Immobilizer type: Finger splint (Static) Performed by: PCT Post-Proc Neuro Vasc Exam: Normal Alignment checked and good: Yes Discharge - Discharge Clinical Impression: History of asthma Finger sprain Qualifiers: Encounter type: initial encounter Finger: middle finger Sprain of finger site: unspecified site Laterality: right Qualified Code(s): S63.612A - Unspecified sprain of right middle finger, initial encounter Upper respiratory infection Qualifiers: URI type: unspecified URI Qualified Code(s): J06.9 - Acute upper respiratory infection, unspecified Condition: Stable Disposition: HOME, SELF-CARE Instructions: Ice & Elevation ([facility]), Inhaled Bronchodilators ([facility]), Sprained Finger ([facility]), Temporary Splint ([facility]), Upper Respiratory Illness ([facility]) Additional Instructions: Return immediately for any new or worsening symptoms Followup with your primary care provider, call tomorrow to make a followup appointment Wear splint for the next 4 days and then remove, if still having pain, follow up with orthopedic doctor for any continued pain or problems Forms: Smoking Cessation Education Referrals: RYDER STEARNS MD [Primary Care Provider] - Follow up as needed [facility] [Provider Group] - Follow up as needed
[2017-08-03 14:29] VITALS: BP 104/56
== END 2017-08-03 14:29 | disposition home or self-care (01) ==
LOC: ER 12:19
DX: S63.612A Unspecified sprain of right middle finger, initial encounter (principal); J06.9 Acute upper respiratory infection, unspecified; F17.200 Nicotine dependence, unspecified, uncomplicated; R11.0 Nausea; X50.0XXA Overexertion from strenuous movement or load, initial encounter; Y93.K9 Activity, other involving animal care; Z90.710 Acquired absence of both cervix and uterus
CPT/HCPCS: 94640; 99283; 71046; 73140; J3490; J7620

== ENCOUNTER → 2018-01-16 | Outpatient (CLI) | payer MEDICAID ==
--- NOTE | 2018-01-17 08:49 | XCELERA REPORT ---
[address] [address] Tel: [phone] Fax: [phone] Lower Extremity Arterial Evaluation Name: JHONNY SHAVER Age: 57 yrs Gender: Female : 1960 Patient Status: Outpatient Patient Location: [facility] Study Date: 01/16/2018 02:14 PM Procedure: Ankle brachial indicies performed. Reason For Study: I73.9 Ordering Physician: RYDER STEARNS Performed By: Anisa Peter Right Side Arterial Evaluation SAGE in Posterior Tibial:1.14. Multiphasic waveform. Left Side Arterial Evaluation SAGE in Posterior Tibial:1.11. Multiphasic waveform. Interpretation Summary SAGE and waveforms normal, bilaterally. : RYDER SETARNS > Don Ferrari
== END ==
LOC: SP 14:12
PROVIDERS: ATTEND Family Medicine
DX: I73.9 Peripheral vascular disease, unspecified (principal)
CPT/HCPCS: 93922

== ENCOUNTER 2018-01-30 11:15 | Emergency (ER) | payer MEDICAID ==
--- NOTE | 2018-01-30 12:02 | ER Document Report ---
ED Medical Screen (RME) - General Chief Complaint: Facial Droop Stated Complaint: FACIAL NUMBNESS Time Seen by Provider: 01/30/18 11:58 Mode of Arrival: Ambulatory Information source: Patient TRAVEL OUTSIDE OF THE [place] IN LAST 30 DAYS: No - HPI Patient complains to provider of: Several days of facial droop and worsening associated weakness and dysarthr - Related Data Allergies/Adverse Reactions: tramadol Allergy (Intermediate, Verified 01/16/17 14:26) severe N&V and diarrhea Gadolinium-Containing Contrast Medi Allergy (Verified 01/16/17 14:26) Iodinated Contrast- Oral and IV Dye Allergy (Verified 01/16/17 14:26) iodine Allergy (Verified 01/16/17 14:26) Penicillins Allergy (Verified 01/16/17 14:26) prednisone Allergy (Verified 01/16/17 14:26) strawberry Allergy (Verified 01/16/17 14:26) Past Medical History - Past Medical History Cardiac Medical History: Reports: Hx Hypertension Pulmonary Medical History: Reports: Hx Asthma Renal/ Medical History: Denies: Hx Peritoneal Dialysis GI Medical History: Reports: Hx Irritable Bowel, Hx Ulcerative Colitis Psychiatric Medical History: Reports: Hx Depression Past Surgical History: Reports: Hx Hysterectomy, Hx Orthopedic Surgery - Back - Immunizations Hx Diphtheria, Pertussis, Tetanus Vaccination: Yes - 2001 Review of Systems - Review of Systems Constitutional: Weakness - Facial droop Cardiovascular: No symptoms reported Respiratory: No symptoms reported Gastrointestinal: No symptoms reported Genitourinary: No symptoms reported Female Genitourinary: No symptoms reported Musculoskeletal: No symptoms reported Skin: No symptoms reported Hematologic/Lymphatic: No symptoms reported Neurological/Psychological: See HPI Physical Exam - Vital signs Vitals: Temp Pulse Resp BP Pulse Ox 98.8 F 65 16 156/71 H 97 01/30/18 11:22 01/30/18 11:22 01/30/18 11:22 01/30/18 11:22 01/30/18 11:22 Course - Re-evaluation Re-evalutation: 01/30/18 12:01 This is a 57-year-old woman who presents with multiple medical comorbidities predisposing the potential CVA, she has had approximately 3 days of symptoms which have worsened making her a poor candidate for any potential intervention at this time for CVA. Will defer stroke activation at this time though this likely represents a central ischemic process will initiate workup through [facility] And moved patient through. - Vital Signs Vital signs: Temp Pulse Resp BP Pulse Ox 98.8 F 65 16 156/71 H 97 01/30/18 11:22 01/30/18 11:22 01/30/18 11:22 01/30/18 11:22 01/30/18 11:22 Doctor's Discharge - Discharge Referrals: RYDER STEARNS MD [Primary Care Provider] - Follow up as needed
--- NOTE | 2018-01-30 12:27 | RADIOLOGY REPORT (SQ) ---
EXAM DESCRIPTION: CT HEAD WITHOUT COMPLETED DATE/TIME: 01/30/2018 12:18 pm REASON FOR STUDY: cva, left facial droop COMPARISON: MRI brain dated 10/08/2016. TECHNIQUE: Axial images acquired through the brain without intravenous contrast. Images reviewed wi th bone, brain and subdural windows. Additional sagittal and coronal reconstructions were generated. Images stored on PACS. All CT scanners at this facility use dose modulation, iterative reconstruction, and/or weight based d osing when appropriate to reduce radiation dose to as low as reasonably achievable (ALARA). [facility]: Dose Right [facility]: CareDose [facility]: Dose Right [facility]: Teradose 4D [facility]: HopeLab RADIATION DOSE: CT Rad equipment meets quality standard of care and radiation dose reduction techniq ues were employed. CTDIvol: 53.2 mGy. DLP: 937 mGy-cm. mGy. LIMITATIONS: None. FINDINGS: VENTRICLES: Normal size and contour. CEREBRUM: No masses. No hemorrhage. No midline shift. No evidence for acute infarction. Normal gra y/white matter differentiation. No areas of low density in the white matter. CEREBELLUM: No masses. No hemorrhage. No alteration of density. No evidence for acute infarction. EXTRAAXIAL SPACES: No fluid collections. No masses. ORBITS AND GLOBE: No intra- or extraconal masses. Normal contour of globe without masses. CALVARIUM: No fracture. PARANASAL SINUSES: No fluid or mucosal thickening. SOFT TISSUES: No mass or hematoma. OTHER: No other significant finding. IMPRESSION: NORMAL BRAIN CT WITHOUT CONTRAST. EVIDENCE OF ACUTE STROKE: NO. COMMENT: Quality ID # [id number]: Final reports with documentation of one or more dose reduction techniques (e.g., Automated exposure control, adjustment of the mA and/or kV according to patient size, use of iterative reconstruction technique) TECHNICAL DOCUMENTATION: JOB ID: [id number] [employer]- All Rights Reserved Reading location - IP/workstation name: [email or web address]
--- NOTE | 2018-01-30 12:27 | RADIOLOGY REPORT (SQ) ---
EXAM DESCRIPTION: CHEST SINGLE VIEW COMPLETED DATE/TIME: 01/30/2018 12:18 pm REASON FOR STUDY: cva, left facial droop COMPARISON: 08/03/2017. EXAM PARAMETERS: NUMBER OF VIEWS: One view. TECHNIQUE: Single frontal radiographic view of the chest acquired. RADIATION DOSE: NA LIMITATIONS: None. FINDINGS: LUNGS AND PLEURA: No opacities, masses or pneumothorax. No pleural effusion. MEDIASTINUM AND HILAR STRUCTURES: No masses. Contour normal. HEART AND VASCULAR STRUCTURES: Heart normal in size. Normal vasculature. BONES: No acute findings. HARDWARE: None in the chest. OTHER: No other significant finding. IMPRESSION: NO ACUTE RADIOGRAPHIC FINDING IN THE CHEST. TECHNICAL DOCUMENTATION: JOB ID: [id number] [employer]- All Rights Reserved Reading location - IP/workstation name: [email or web address]
--- NOTE | 2018-01-30 17:01 | ER Document Report ---
ED Neuro Symptoms/Deficit - General Chief Complaint: Facial Droop Stated Complaint: FACIAL NUMBNESS Time Seen by Provider: 01/30/18 11:58 Mode of Arrival: Ambulatory TRAVEL OUTSIDE OF THE [place] IN LAST 30 DAYS: No - HPI Patient complains to provider of: Facial Droop - Left Onset: Yesterday - Woke up yesterday morningwith left facial droop. Awoke with symptoms: Yes Symptoms are: Constant Duration: Continues in ED Quality of pain: No pain Severity: None Pain Level: Denies Context: None Loss of consciousness: No loss of consciousness Was STROKE ALERT Called: No Baseline Cognitive: Alert, oriented X 3 Baseline Gait: Uses a cane/walker Pre-existing weakness: Face Alert To: Name/Voice Patient Orientation: Person, Place, Time, Events New weakness: L facial Altered sensation: L facial Associated symptoms: Headache Similar symptoms previously: No Recently seen / treated by doctor: No - Related Data Allergies/Adverse Reactions: tramadol Allergy (Intermediate, Verified 01/30/18 17:01) severe N&V and diarrhea Gadolinium-Containing Contrast Medi Allergy (Verified 01/30/18 17:01) Iodinated Contrast- Oral and IV Dye Allergy (Verified 01/30/18 17:01) iodine Allergy (Verified 01/30/18 17:01) Penicillins Allergy (Verified 01/30/18 17:01) prednisone Allergy (Verified 01/30/18 17:01) strawberry Allergy (Verified 01/30/18 17:01) Past Medical History - General Information source: Patient - Social History Smoking Status: Unknown if Ever Smoked Family History: Reviewed & Not Pertinent Patient has suicidal ideation: No Patient has homicidal ideation: No - Past Medical History Cardiac Medical History: Reports: Hx Hypertension Pulmonary Medical History: Reports: Hx Asthma Renal/ Medical History: Denies: Hx Peritoneal Dialysis GI Medical History: Reports: Hx Irritable Bowel, Hx Ulcerative Colitis Psychiatric Medical History: Reports: Hx Depression Past Surgical History: Reports: Hx Hysterectomy, Hx Orthopedic Surgery - Back - Immunizations Hx Diphtheria, Pertussis, Tetanus Vaccination: Yes - 2001 Hx Pneumococcal Vaccination: 07/02/13 Review of Systems - Review of Systems Constitutional: denies: Chills, Fever EENT: Other - left facial droop Cardiovascular: No symptoms reported Respiratory: No symptoms reported Gastrointestinal: No symptoms reported Genitourinary: No symptoms reported Female Genitourinary: No symptoms reported Musculoskeletal: No symptoms reported Skin: No symptoms reported Hematologic/Lymphatic: No symptoms reported Neurological/Psychological: No symptoms reported -: Yes All other systems reviewed and negative Physical Exam - Vital signs Vitals: Temp Pulse Resp BP Pulse Ox 98.8 F 65 16 156/71 H 97 01/30/18 11:22 01/30/18 11:22 01/30/18 11:22 01/30/18 11:22 01/30/18 11:22 - General General appearance: Appears well, Alert In distress: None - HEENT Head: Normocephalic Eyes: Normal Conjunctiva: Normal Cornea: Normal Extraocular movements intact: Yes Eyelashes: Normal Pupils: PERRL Nerve palsy: Yes - Deerton palsy Ears: Normal - Respiratory Respiratory status: No respiratory distress Chest status: Nontender Breath sounds: Normal Chest palpation: Normal - Cardiovascular Rhythm: Regular Heart sounds: Normal auscultation Murmur: No - Abdominal Inspection: Normal Distension: No distension Bowel sounds: Normal Tenderness: Nontender Organomegaly: No organomegaly - Back Back: Normal, Nontender - Extremities General upper extremity: Normal inspection, Nontender, Normal color, Normal ROM , Normal temperature General lower extremity: Normal inspection, Nontender, Normal color, Normal ROM , Normal temperature, Normal weight bearing. No: Maria's sign - Neurological Neuro grossly intact: No - Left facial droop Cognition: Normal Orientation: AAOx4 Geeta Coma Scale Eye Opening: Spontaneous Geeta Coma Scale Verbal: Oriented Geeta Coma Scale Motor: Obeys Commands [place] Coma Scale Total: 15 Speech: Normal Cranial nerves: Facial palsy - Left Deerton palsy Cerebellar coordination: Normal Motor strength normal: LUE, RUE, LLE, RLE Babinski reflex: Normal (flexor plantar) Sensory: Normal - Psychological Associated symptoms: Normal affect, Normal mood - Skin Skin Temperature: Warm Skin Moisture: Dry Skin Color: Normal Course - Vital Signs Vital signs: Temp Pulse Resp BP Pulse Ox 98.8 F 56 L 15 116/72 97 01/30/18 11:22 01/30/18 18:00 01/30/18 19:01 01/30/18 19:01 01/30/18 19:01 - Laboratory Result Diagrams: 01/30/18 17:30 01/30/18 17:30 Laboratory results interpreted by me: 01/30/18 01/30/18 17:30 17:30 Lymphocytes % 45.4 H AST 50 H Discharge - Discharge Clinical Impression: Left facial numbness, Kenny's palsy Condition: Stable Disposition: HOME, SELF-CARE Instructions: Kenny's Palsy ([facility]) Additional Instructions: Follow up with your regular doctor tomorrow morning. Return to the ED if your condition worsens. Prescriptions: Mineral Oil/Petrolatum,White [Lacri-Lube S.O.P. Ointment 3.5 Gm Tube] 1 applic LFT_EYE Q4 #1 tube Valacyclovir HCl [Valtrex] 1,000 mg PO TID #30 tablet Referrals: RYDER STEARNS MD [Primary Care Provider] - Follow up as needed
[2018-01-30 17:45] LABS: ABSOLUTE BASOPHILS # (AUTO) 0.1 10^3/uL (0.0-0.2); ABSOLUTE EOSINOPHILS # (AUTO) 0.2 10^3/uL (0.0-0.6); ABSOLUTE MONOCYTES (AUTO) 0.6 10^3/uL (0.1-1.4); ABSOLUTE NEUT (AUTO) 3.8 10^3/uL (1.7-8.2); BASOPHILS % (AUTO) 1.4 % (0-2); EOSINOPHILS % (AUTO) 2.2 % (0-6); HEMATOCRIT 39.3 % (36.0-47.0); HEMOGLOBIN 13.6 g/dL (12.0-15.5); LYMPHOCYTES % (AUTO) 45.4 % (13-45); MEAN CORPUSCULAR HEMOGLOBIN 32.8 pg (27.0-33.4); MEAN CORPUSCULAR HGB CONC 34.6 g/dL (32.0-36.0); MEAN CORPUSCULAR VOLUME 95 fl (80-97); MONOCYTES % (AUTO) 7.4 % (3-13); PLATELET COUNT 349 10^3/uL (150-450); RED BLOOD COUNT 4.15 10^6/uL (3.72-5.28); RED CELL DISTRIBUTION WIDTH 13.2 % (11.5-14.0); SEGMENTED NEUTROPHILS % (AUTO) 43.6 % (42-78); TOTAL CELLS COUNTED % (AUTO) 100 %; WHITE BLOOD COUNT 8.7 10^3/uL (4.0-10.5)
[2018-01-30 17:53] LABS: INTERNATIONAL RATION (INR) 0.94; PROTHROMBIN TIME 13.1 SEC (11.4-15.4)
[2018-01-30 17:54] LABS: PARTIAL THROMBOPLASTIN TIME 30.6 SEC (23.5-35.8)
[2018-01-30 18:16] LABS: ALBUMIN 4.4 g/dL (3.5-5.0); ANION GAP 10 (5-19); BILIRUBIN,DIRECT 0.4 mg/dL (0.0-0.4); BILIRUBIN,TOTAL 0.4 mg/dL (0.2-1.3); CALCIUM 9.1 mg/dL (8.4-10.2); CARBON DIOXIDE 26 mmol/L (22-30); CHLORIDE 105 mmol/L (98-107); GLUCOSE 88 mg/dL (75-110); SODIUM 140.9 mmol/L (137-145); TOTAL PROTEIN 7.6 g/dL (6.3-8.2)
[2018-01-30 18:31] LABS: ALANINE AMINOTRANSFERASE 12 U/L (9-52); ALKALINE PHOSPHATASE 67 U/L (38-126); ASPARTATE AMINO TRANSFERASE 50 U/L (14-36); BLOOD UREA NITROGEN 13 mg/dL (7-20); POTASSIUM 4.2 mmol/L (3.6-5.0)
--- NOTE | 2018-01-30 21:07 | RADIOLOGY REPORT (SQ) ---
EXAM DESCRIPTION: MRI HEAD WITHOUT COMPLETED DATE/TIME: 01/30/2018 8:47 pm REASON FOR STUDY: Left facial droop COMPARISON: 10/08/2016 TECHNIQUE: Multiplanar imaging includes non-contrasted T1, T2, FLAIR, and diffusion with ADC map seq uences. Images stored on PACS. LIMITATIONS: None. FINDINGS: ANATOMY: No anomalies. Normal vascular flow voids. Pituitary fossa normal. CSF SPACES: Normal in size and contour. No hemorrhage. There appears to be a small arachnoid cyst i n the anterior aspect of the left middle cranial fossa. No interval change. CEREBRUM: Sulci and gyri normal in size and contour. Normal white matter signal on FLAIR imaging. No evidence of hemorrhage, mass, or extraaxial fluid collection. POSTERIOR FOSSA: No signal alteration. No hemorrhage. No edema, masses or mass effect. Internal meredith tory canals, cerebello-pontine angles, mastoids normal. DIFFUSION IMAGING: Negative for acute or sub-acute infarction. ORBITS: No masses. Globes normal. PARANASAL SINUSES: No fluid levels. Mucosa normal. OTHER: No other significant finding. IMPRESSION: Stable small arachnoid cyst in the left middle cranial fossa. No acute intracranial fin dings. EVIDENCE OF ACUTE STROKE: NO. TECHNICAL DOCUMENTATION: JOB ID: [id number] [employer]- All Rights Reserved Reading location - IP/workstation name: [email or web address]
--- NOTE | 2018-01-30 21:21 | EKG REPORT ---
SEVERITY:- NORMAL ECG - SINUS RHYTHM : Confirmed by: Shila Ahmadi 30-Jan-2018 21:20:19
[2018-01-30] MEDS ORDERED: VALACYCLOVIR HCL 500 MG TABLET PO ONE (21:39)
[2018-01-30 21:54] VITALS: BP 115/53
== END 2018-01-30 21:57 | disposition home or self-care (01) ==
LOC: ER 11:15
DX: G51.0 Bell's palsy (principal); R20.0 Anesthesia of skin; R51 Headache; I10 Essential (primary) hypertension; J45.909 Unspecified asthma, uncomplicated; Z88.5 Allergy status to narcotic agent; Z91.041 Radiographic dye allergy status; Z88.0 Allergy status to penicillin; Z88.8 Allergy status to other drugs, medicaments and biological substances; Z91.018 Allergy to other foods
CPT/HCPCS: 93005; 99285; 36415; 85025; 85610; 85730; 80053; 84484; 70551; 71045; 70450; 93010; J3490

== ENCOUNTER 2018-11-06 08:47 | Day surgery (SDC) | payer MEDICAID ==
[~2018-11-06 08:47] MED LIST: CHONDR SU A NA/HYALUR INTRAOC KIT (SURGICARE) ONE; EPINEPHRINE INJ/PF 1 MG/1 ML AMPULE ONE; KETOROLAC TROMETHAMINE 0.45% 4 DROP/0.4 ML DROPERETTE OD PRN; LIDOCAINE 1% INJ-PF (10 MG/ML) 30 ML SDV ONE; TOBRAMYCIN SULFATE/DEXAMETH OPH OINTMENT 3.5 GM ONE
[2018-11-06] MEDS ORDERED: MIDAZOLAM 2 MG/2 ML INJ ONE (09:28)
[2018-11-06] MEDS: TETRACAINE HCL 0.5% OPH SOLN 0.6 ML DROPERETTE OD PRN ×3 (09:35→10:05)
[2018-11-06] MEDS: TROPICAMIDE 1% OPH SOLN 3 ML OD PRN ×3 (09:35→09:55)
[2018-11-06] MEDS: BESIFLOXACIN HCL 0.6% OPH SUSP 5 ML BOTTLE OD PRN ×3 (09:35→10:19)
[2018-11-06] MEDS: CYCLOPENTOLATE 0.2%/PHENYLEPHRINE 1% OPH SOLN 2 ML OD PRN ×3 (09:35→09:55)
== END 2018-11-06 11:00 | disposition home or self-care (01) ==
LOC: SC 08:47
PROVIDERS: ATTEND Ophthalmology
DX: H25.11 Age-related nuclear cataract, right eye (principal); F17.210 Nicotine dependence, cigarettes, uncomplicated; J44.9 Chronic obstructive pulmonary disease, unspecified; I10 Essential (primary) hypertension; K21.9 Gastro-esophageal reflux disease without esophagitis; G51.0 Bell's palsy; Z79.51 Long term (current) use of inhaled steroids; Z88.5 Allergy status to narcotic agent; Z88.0 Allergy status to penicillin; Z79.899 Other long term (current) drug therapy
CPT/HCPCS: 66984; V2632; J2250; J3490 ×5; J0171; 142

== ENCOUNTER 2018-12-04 08:49 | Day surgery (SDC) | payer MEDICAID ==
[~2018-12-04 08:49] MED LIST changes: -KETOROLAC TROMETHAMINE 0.45% 4 DROP/0.4 ML DROPERETTE OD PRN; +KETOROLAC TROMETHAMINE 0.45% 4 DROP/0.4 ML DROPERETTE OS PRN
[2018-12-04] MEDS: CYCLOPENTOLATE 0.2%/PHENYLEPHRINE 1% OPH SOLN 2 ML OS PRN ×3 (09:29→09:48)
[2018-12-04] MEDS: TROPICAMIDE 1% OPH SOLN 3 ML OS PRN ×3 (09:29→09:48)
[2018-12-04] MEDS: BESIFLOXACIN HCL 0.6% OPH SUSP 5 ML BOTTLE OS PRN ×3 (09:30→10:30)
[2018-12-04] MEDS: TETRACAINE HCL 0.5% OPH SOLN 0.6 ML DROPERETTE OS PRN ×3 (09:31→10:12)
[2018-12-04] MEDS ORDERED: MIDAZOLAM 2 MG/2 ML INJ ONE (09:59)
[2018-12-04] MEDS ORDERED: FENTANYL CITRATE INJ/PF 100 MCG/2 ML AMPUL ONE (09:59)
== END 2018-12-04 11:20 | disposition home or self-care (01) ==
LOC: SC 08:49
PROVIDERS: ATTEND Ophthalmology
DX: H25.12 Age-related nuclear cataract, left eye (principal); J44.9 Chronic obstructive pulmonary disease, unspecified; F17.210 Nicotine dependence, cigarettes, uncomplicated; Z79.51 Long term (current) use of inhaled steroids; I10 Essential (primary) hypertension; Z79.899 Other long term (current) drug therapy; K21.9 Gastro-esophageal reflux disease without esophagitis
CPT/HCPCS: 66984; V2632; J2250; J3490 ×5; J0171; J3010

== ENCOUNTER 2019-11-13 21:05 | Emergency (ER) | payer MEDICARE, MEDICAID ==
[2019-11-13] MEDS ORDERED: IBUPROFEN 600 MG TABLET PO ONE (21:58)
--- NOTE | 2019-11-13 22:01 | ER Document Report ---
ED Medical Screen (RME) - General Chief Complaint: Flank Pain Stated Complaint: LEFT SIDE RIB PAIN Time Seen by Provider: 11/13/19 21:54 Primary Care Provider: RYDER STEARNS MD [Primary Care Provider] - Follow up as needed Mode of Arrival: Ambulatory Information source: Patient Notes: HPI; 58-year-old female past medical history significant for chronic pain, COPD, hypertension, carpal tunnel, asthma, COPD, prediabetes presents to the emergency room complaining of left-sided rib pain. Patient states she was leaning over the arm of a chair to get her purse when she hit her ribs on the chair to the arm. States she felt a pop. Took 1 of her Austin's without relief. States it hurts to take a deep breath. No shortness of breath, no difficulty breathing. No history of previous rib fractures. PE: Alert and oriented x3, moderate distress noted. Lungs clear to auscultation without rales rhonchi or wheezes. Heart regular rate rhythm without murmurs rubs or gallops. Tender on palpation to the left anterior and lateral lower ribs, no obvious deformity palpated. I have greeted and performed a rapid initial assessment of this patient. A comprehensive ED assessment and evaluation of the patient, analysis of test results and completion of medical decision making process will be conducted by an additional ED providers. TRAVEL OUTSIDE OF THE [place] IN LAST 30 DAYS: No - Related Data Allergies/Adverse Reactions: tramadol Allergy (Intermediate, Verified 11/13/19 21:53) severe N&V and diarrhea Gadolinium-Containing Contrast Medi Allergy (Verified 11/13/19 21:53) Iodinated Contrast Media Allergy (Verified 11/13/19 21:53) iodine Allergy (Verified 11/13/19 21:53) Penicillins Allergy (Verified 11/13/19 21:53) prednisone Allergy (Verified 11/13/19 21:53) strawberry Allergy (Verified 11/13/19 21:53) Past Medical History - Social History Frequency of alcohol use: None Drug Abuse: Prescription drugs - Past Medical History Cardiac Medical History: Reports: Hx Hypertension Denies: Hx Heart Attack Pulmonary Medical History: Reports: Hx Asthma Neurological Medical History: Denies: Hx Cerebrovascular Accident, Hx Seizures Renal/ Medical History: Denies: Hx Peritoneal Dialysis GI Medical History: Reports: Hx Irritable Bowel, Hx Ulcer - 2016, Hx Ulcerative Colitis. Denies: Hx Hepatitis, Hx Hiatal Hernia Psychiatric Medical History: Reports: Hx Depression Infectious Medical History: Denies: Hx Hepatitis Past Surgical History: Reports: Hx Hysterectomy, Hx Orthopedic Surgery - Back. Denies: Hx Mastectomy, Hx Open Heart Surgery, Hx Pacemaker - Immunizations Hx Diphtheria, Pertussis, Tetanus Vaccination: Yes - 2001 Physical Exam - Vital signs Vitals: Temp Pulse Resp BP Pulse Ox 98.5 F 78 16 148/59 H 98 11/13/19 21:10 11/13/19 21:10 11/13/19 21:10 11/13/19 21:10 11/13/19 21:10 Course - Vital Signs Vital signs: Temp Pulse Resp BP Pulse Ox 98.5 F 78 16 148/59 H 98 11/13/19 21:54 11/13/19 21:10 11/13/19 21:10 11/13/19 21:10 11/13/19 21:10 Doctor's Discharge - Discharge Referrals: RYDER STEARNS MD [Primary Care Provider] - Follow up as needed
--- NOTE | 2019-11-13 22:54 | RADIOLOGY REPORT (SQ) ---
EXAM DESCRIPTION: XR RIBS UNILATERAL WITH CHEST COMPLETED DATE/TME: 11/13/2019 21:58 CLINICAL HISTORY: 58 years, Female, pain COMPARISON: 01/30/2018 chest NUMBER OF VIEWS: 3 TECHNIQUE: Frontal view the chest and 2 views of the left ribs LIMITATIONS: None. FINDINGS: Heart size is normal. Lungs are clear. No pneumothorax. Negative for left rib fracture. Soft tissues are unremarkable IMPRESSION: No acute cardiopulmonary process. Negative for left rib fracture copyright 2010 [employer]- All Rights Reserved
--- NOTE | 2019-11-13 23:59 | ER Document Report ---
ED General - General Chief Complaint: Flank Pain Stated Complaint: LEFT SIDE RIB PAIN Time Seen by Provider: 11/13/19 21:54 Primary Care Provider: RYDER STEARNS MD [Primary Care Provider] - Follow up as needed Mode of Arrival: Ambulatory Notes: 58-year-old woman presents to the emergency department with complaint of pain in her left rib cage. 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 She has been in pain since that time which occurred approximately 430 this afternoon. She denies a prior history of injury or lung collapse. TRAVEL OUTSIDE OF THE [place] IN LAST 30 DAYS: No - Related Data Allergies/Adverse Reactions: tramadol Allergy (Intermediate, Verified 11/13/19 21:53) severe N&V and diarrhea Gadolinium-Containing Contrast Medi Allergy (Verified 11/13/19 21:53) Iodinated Contrast Media Allergy (Verified 11/13/19 21:53) iodine Allergy (Verified 11/13/19 21:53) Penicillins Allergy (Verified 11/13/19 21:53) prednisone Allergy (Verified 11/13/19 21:53) strawberry Allergy (Verified 11/13/19 21:53) Past Medical History - General Information source: Patient - Social History Smoking Status: Current Every Day Smoker Frequency of alcohol use: None Drug Abuse: Prescription drugs Family History: Reviewed & Not Pertinent Patient has homicidal ideation: No - Past Medical History Cardiac Medical History: Reports: Hx Hypertension Denies: Hx Heart Attack Pulmonary Medical History: Reports: Hx Asthma Neurological Medical History: Denies: Hx Cerebrovascular Accident, Hx Seizures Renal/ Medical History: Denies: Hx Peritoneal Dialysis GI Medical History: Reports: Hx Irritable Bowel, Hx Ulcer - 2016, Hx Ulcerative Colitis. Denies: Hx Hepatitis, Hx Hiatal Hernia Psychiatric Medical History: Reports: Hx Depression Infectious Medical History: Denies: Hx Hepatitis Past Surgical History: Reports: Hx Hysterectomy, Hx Orthopedic Surgery - Back. Denies: Hx Mastectomy, Hx Open Heart Surgery, Hx Pacemaker - Immunizations Hx Diphtheria, Pertussis, Tetanus Vaccination: Yes - 2001 Hx Pneumococcal Vaccination: 07/02/13 Review of Systems - Review of Systems Notes: Constitutional: Negative for fever. HENT: Negative for sore throat. Eyes: Negative for visual changes. Cardiovascular: Negative for chest pain. Respiratory: Negative for shortness of breath. Chest: + Left rib pain Gastrointestinal: Negative for abdominal pain, vomiting or diarrhea. Genitourinary: Negative for dysuria. Musculoskeletal: Negative for back pain. Skin: Negative for rash. Neurological: Negative for headaches, weakness or numbness. 10 point ROS negative except as marked above and in HPI. Physical Exam - Vital signs Vitals: Temp Pulse Resp BP Pulse Ox 98.5 F 78 16 148/59 H 98 11/13/19 21:10 11/13/19 21:10 11/13/19 21:10 11/13/19 21:10 11/13/19 21:10 - Notes Notes: PHYSICAL EXAMINATION: Physical Exam: General: Well-nourished well-developed in no acute distress HEENT: NC/AT, pupils equal round and reactive to light, MM moist,nares clear, oropharynx clear, airway patent Neck: supple, no adenopathy, no masses. Good range of motion Lungs: clear, no wheezing, no rales no rhonchi Chest: + Tenderness in the fourth/fifth rib area, no crepitus, no step-off CVS: Regular rate and rhythm no murmur gallop or rub Abdomen: Soft, active, nontender, no masses, no hepatosplenomegaly Ext: No edema, clubbing or cyanosis. Neuro: Alert and responsive, moving all 4 extremities on command, cranial nerves intact, no focal findings Skin: Intact no open lesions, no rash PSYCH: Normal mood, normal affect. Course - Re-evaluation Re-evalutation: 11/13/19 23:58 Left rib cage pain, chest x-ray/rib series negative for fracture. Patient takes Mccarley and Naprosyn on a regular basis for chronic pain and arthritis. I have asked her to continue those usual medications she may apply cold pack to the area of pain to help reduce the tenderness. She will follow-up with her regular doctor as needed. - Vital Signs Vital signs: Temp Pulse Resp BP Pulse Ox 98.5 F 78 16 148/59 H 98 11/13/19 21:54 11/13/19 21:10 11/13/19 21:10 11/13/19 21:10 11/13/19 21:10 - Diagnostic Test Radiology reviewed: Image reviewed, Reports reviewed - Chest x-ray or rib series: Rib fracture, no pneumothorax. Discharge - Discharge Clinical Impression: Contusion of rib on left side Qualifiers: Encounter type: initial encounter Qualified Code(s): S20.212A - Contusion of left front wall of thorax, initial encounter Condition: Good Disposition: HOME, SELF-CARE Additional Instructions: You are seen in the emergency department for pain in the left rib cage, appears to be a contusion to the left rib cage, no fracture seen on x-ray. Please continue your usual medications for pain, use a cold pack to the area of pain. Please follow-up with your primary care doctor as needed. If your symptoms are worsening or if you have other concerns you may return to the emergency department for further evaluation and treatment. HOME CARE INSTRUCTIONS & INFORMATION: Thank you for choosing us for your medical needs. We hope you're satisfied with the care you received. After you leave, you must properly care for your problem and, at the same time, observe its progress. Any condition can change. Some illnesses can change rapidly over hours or days. If your condition worsens, return to the Emergency Department or see your physician promptly. ABOUT YOUR X-RAYS AND EKG'S: If you had an EKG or X-rays taken, they have been read by the Emergency Physician. The X-rays and EKG's will also be read by a Radiologist or Fur Dry Cleaner Hand within 24 hours. If discrepancies are noted, you will be notified by telephone. Please be certain the ED has a correct telephone number & address where you can be reached. Also, realize that some fractures or abnormalities do not show up on initial X-rays. If your symptoms continue, see your physician. ABOUT YOUR LABORATORY TEST: If you had laboratory tests, the results have been reviewed by the Emergency Physician. Some test results (for example cultures) may not be available for several days. You will be contacted if any test result shows you need additional treatment. Please be certain the ED has a correct telephone number and address where you can be reached. ABOUT YOUR MEDICATIONS: You will receive instructions on how to take your medicine on the prescription label you receive. Additional information may be provided by the Pharmacy. If you have questions afterwards, call the ED for clarification or further instructions. Some prescribed medications may cause drowsiness. Do not perform tasks such as driving a car or operating machinery without consulting your Pharmacist. If you feel you need a refill of pain medication, your condition will need re-evaluation. Please do not call for a refill of any medication. ABOUT YOUR SIGNATURE: Signature of this document acknowledges to followin. Understanding that you received emergency treatment and that you may be released before al medical problems are known or treated. Please be certain the ED has a correct phone number & address where you can be reached. 2. Acknowledgement that you will arrange for follow-up care as recommended. 3. Authorization for the Emergency Physician to provide information to your follow-up Physician in order to maximize your care. AT ANY TIME, IF YOUR SYMPTOMS CHANGE SIGNIFICANTLY OR WORSEN OR YOU DEVELOP NEW SYMPTOMS, RETURN TO THE EMERGENCY DEPARTMENT IMMEDIATELY FOR RE-EVALUATION. OUR GOAL IS TO PROVIDE EXCELLENT MEDICAL CARE! WE HOPE THAT WE HAVE MET YOUR EXPECTATIONS DURING YOUR EMERGENCY DEPARTMENT VISIT AND THAT YOU FEEL YOU HAVE RECEIVED EXCELLENT CARE! Referrals: RYDER STEARNS MD [Primary Care Provider] - Follow up as needed
[2019-11-14 00:41] VITALS: BP 117/60
== END 2019-11-14 00:41 | disposition home or self-care (01) ==
LOC: ER 21:05
DX: S20.212A Contusion of left front wall of thorax, initial encounter (principal); X58.XXXA Exposure to other specified factors, initial encounter; R07.81 Pleurodynia; M19.90 Unspecified osteoarthritis, unspecified site; G89.29 Other chronic pain; Z79.899 Other long term (current) drug therapy; F17.200 Nicotine dependence, unspecified, uncomplicated; F19.10 Other psychoactive substance abuse, uncomplicated; I10 Essential (primary) hypertension; J45.909 Unspecified asthma, uncomplicated; Z88.6 Allergy status to analgesic agent; Z91.013 Allergy to seafood; Z88.0 Allergy status to penicillin; Z88.8 Allergy status to other drugs, medicaments and biological substances; Z91.018 Allergy to other foods
CPT/HCPCS: 99283; 71101; A9270

== ENCOUNTER → 2020-04-22 | Outpatient (CLI) | payer MEDICARE, MEDICAID ==
[2020-04-22 10:21] LABS: ABSOLUTE BASOPHILS # (AUTO) 0.1 10^3/uL (0.0-0.2); ABSOLUTE EOSINOPHILS # (AUTO) 0.2 10^3/uL (0.0-0.6); ABSOLUTE LYMPHOCYTES (AUTO) 2.9 10^3/uL (0.5-4.7); ABSOLUTE MONOCYTES (AUTO) 0.8 10^3/uL (0.1-1.4); BASOPHILS % (AUTO) 0.6 % (0-2); EOSINOPHILS % (AUTO) 1.5 % (0-6); HEMATOCRIT 41.1 % (36.0-47.0); HEMOGLOBIN 14.1 g/dL (12.0-15.5); LYMPHOCYTES % (AUTO) 26.9 % (13-45); MEAN CORPUSCULAR HEMOGLOBIN 33.6 pg (27.0-33.4); MEAN CORPUSCULAR HGB CONC 34.3 g/dL (32.0-36.0); MEAN CORPUSCULAR VOLUME 98 fl (80-97); PLATELET COUNT 344 10^3/uL (150-450); RED BLOOD COUNT 4.19 10^6/uL (3.72-5.28); RED CELL DISTRIBUTION WIDTH 12.6 % (11.5-14.0); TOTAL CELLS COUNTED % (AUTO) 100 %
[2020-04-22 10:47] LABS: ANION GAP 9 (5-19); BLOOD UREA NITROGEN 18 mg/dL (7-20); CALCIUM 9.9 mg/dL (8.4-10.2); CARBON DIOXIDE 29 mmol/L (22-30); CHLORIDE 104 mmol/L (98-107); GLUCOSE 90 mg/dL (75-110); POTASSIUM 4.8 mmol/L (3.6-5.0)
--- NOTE | 2020-04-22 13:41 | RADIOLOGY REPORT (SQ) ---
EXAM DESCRIPTION: CHEST PA/LATERAL IMAGES COMPLETED DATE/TIME: 04/22/2020 10:18 am REASON FOR STUDY: PRE-OP COMPARISON: 01/30/2018 EXAM PARAMETERS: NUMBER OF VIEWS: two views TECHNIQUE: Digital Frontal and Lateral radiographic views of the chest acquired. RADIATION DOSE: NA LIMITATIONS: none FINDINGS: LUNGS AND PLEURA: No opacities, masses or pneumothorax. No pleural effusion. MEDIASTINUM AND HILAR STRUCTURES: No masses or contour abnormalities. HEART AND VASCULAR STRUCTURES: Heart normal size. No evidence for failure. BONES: No acute findings. HARDWARE: None in the chest. OTHER: No other significant finding. IMPRESSION: NO SIGNIFICANT RADIOGRAPHIC FINDING IN THE CHEST. TECHNICAL DOCUMENTATION: JOB ID: [id number] 2010 [employer]- All Rights Reserved Reading location - IP/workstation name: [email or web address]
--- NOTE | 2020-04-22 17:53 | EKG REPORT ---
SEVERITY:- BORDERLINE ECG - SINUS RHYTHM PROBABLE LEFT ATRIAL ABNORMALITY : Confirmed by: Jamie Judd MD 22-Apr-2020 17:52:59
== END ==
LOC: OD 09:42
PROVIDERS: ATTEND Orthopaedic Surgery
DX: Z01.810 Encounter for preprocedural cardiovascular examination (principal); Z01.811 Encounter for preprocedural respiratory examination; Z01.812 Encounter for preprocedural laboratory examination; G56.22 Lesion of ulnar nerve, left upper limb
CPT/HCPCS: 36415; 71046; 80048; 85025; 93005; 93010